=== PATIENT | male | born 1960 | race Caucasian/White ===

== ENCOUNTER 2016-10-20 09:57 | Inpatient (IN) | payer OTHER ==
[~2016-10-20] VITALS: Ht 180.3 cm; Wt 74.8 kg
[2016-10-20] VITALS (9 sets, daily range): BP systolic 105–127; BP diastolic 63–74
--- NOTE | 2016-10-20 10:05 | PHYS DOC ---
Past Medical History Past Medical History: HIV Past Surgical History: Other Additional Past Surgical Histo: STOMACH SX FOR VARICOSE VEINS Alcohol Use: Rarely Adult General Chief Complaint Chief Complaint: abdominal pain HPI HPI Patient is a 56 year old male who presents with abdominal pain. He states it started around 5 AM it is diffuse sharp constant pain this is abdomen. He states he had elbow surgery a few weeks ago is taking hydrocodone and had a hard stool yesterday however he's never had pain or discomfort like this before. He did vomit once this morning with thinks is secondary to sinus drainage. Denies any fevers chills. He states he had a history of varices in his lower abdomen 20 years ago in addition to ulcers. He states he's not had any concerns with both of these over the last 20 years.. He is HIV positive and his states his viral load is undetectable. States nothing he does makes the pain better or worse. He tried to take 2 hydrocodone prior to calling the ambulance this morning without any relief. Review of Systems Review of Systems Constitutional: Denies fever or chills [] Eyes: Denies change in visual acuity, redness, or eye pain [] HENT: Denies nasal congestion or sore throat [] Respiratory: Denies cough or shortness of breath [] Cardiovascular: No additional information not addressed in HPI [] GI: Denies nausea, vomiting, bloody stools or diarrhea, positive for abdominal pain, : Denies dysuria or hematuria [] Musculoskeletal: Denies back pain or joint pain [] Integument: Denies rash or skin lesions [] Neurologic: Denies headache, focal weakness or sensory changes [] Endocrine: Denies polyuria or polydipsia [] Current Medications Current Medications Current Medications Medications (Trade) Dose Ordered Sig/Viet Start Time Stop Time Status Last Admin Dose Admin Hydromorphone HCl (Dilaudid) 1 mg PRN Q15MIN PRN 10/20/16 11:00 10/21/16 10:59 10/20/16 11:24 1 MG Info (Do NOT chart on this entry -- for MONITORING) 1 each PRN DAILY PRN 10/20/16 11:30 10/22/16 11:29 Iohexol (Omnipaque 300 Mg/ml) 75 ml 1X ONCE 10/20/16 11:30 10/20/16 11:31 DC 10/20/16 11:29 75 ML Morphine Sulfate 4 mg PRN Q15MIN PRN 10/20/16 10:15 10/21/16 10:14 10/20/16 10:27 4 MG Ondansetron HCl (Zofran) 4 mg 1X ONCE 10/20/16 10:15 10/20/16 10:16 DC 10/20/16 10:27 4 MG Sodium Chloride 1,000 ml @ 1,000 mls/hr Q1H 10/20/16 10:15 10/20/16 11:14 DC 10/20/16 10:27 1,000 MLS/HR Allergies Allergies Allergies Coded Allergies Type Severity Reaction Last Updated Verified No Known Drug Allergies 11/05/15 No Physical Exam Physical Exam Constitutional: Well developed, well nourished, no acute distress, non-toxic appearance. [] HENT: Normocephalic, atraumatic, bilateral external ears normal, oropharynx moist, no oral exudates, nose normal. [] Eyes: PERRLA, EOMI, conjunctiva normal, no discharge. [] Neck: Normal range of motion, no tenderness, supple, no stridor. [] Cardiovascular:Heart rate regular rhythm, no murmur [] Lungs & Thorax: Bilateral breath sounds clear to auscultation [] Abdomen: Bowel sounds normal, soft, tender to palpation diffusely with voluntary guarding, no masses, no pulsatile masses. [] Skin: Warm, dry, no erythema, no rash. [] Back: No tenderness, no CVA tenderness. [] Extremities: No tenderness, no cyanosis, no clubbing, ROM intact, no edema. [] Neurologic: Alert and oriented X 3, normal motor function, normal sensory function, no focal deficits noted. [] Psychologic: Affect normal, judgement normal, mood normal. [] Current Patient Data Vital Signs Vital Signs Date Time Temp Pulse Resp B/P (MAP) Pulse Ox O2 Delivery O2 Flow Rate FiO2 10/20/16 11:24 26 98 Room Air 10/20/16 11:04 96 128/66 (86) 10/20/16 09:57 96.8 96.8 Lab Values Laboratory Tests Test 10/20/16 10:18 10/20/16 11:40 White Blood Count 17.0 x10^3/uL (4.0-11.0) H Red Blood Count 4.37 x10^6/uL (4.30-5.70) Hemoglobin 15.2 g/dL (13.0-17.5) Hematocrit 43.4 % (39.0-53.0) Mean Corpuscular Volume 99 fL (79-100) Mean Corpuscular Hemoglobin 35 pg (25-35) Mean Corpuscular Hemoglobin Concent 35 g/dL (31-37) Red Cell Distribution Width 12.8 % (11.5-14.5) Platelet Count 275 x10^3/uL (140-400) Neutrophils (%) (Auto) 87 % (31-73) H Lymphocytes (%) (Auto) 6 % (24-48) L Monocytes (%) (Auto) 7 % (0-9) Eosinophils (%) (Auto) 0 % (0-3) Basophils (%) (Auto) 0 % (0-3) Neutrophils # (Auto) 14.7 x10^3uL (1.8-7.7) H Lymphocytes # (Auto) 1.1 x10^3/uL (1.0-4.8) Monocytes # (Auto) 1.2 x10^3/uL (0.0-1.1) H Eosinophils # (Auto) 0.0 x10^3/uL (0.0-0.7) Basophils # (Auto) 0.1 x10^3/uL (0.0-0.2) Segmented Neutrophils % 76 % (35-66) H Band Neutrophils % 6 % (0-9) Lymphocytes % 8 % (24-48) L Monocytes % 10 % (0-10) Hypersegmented Neutrophils Present Platelet Estimate Adequate (ADEQUATE) Prothrombin Time 13.0 SEC (11.7-14.0) Prothrombin Time INR 1.0 (0.8-1.1) PTT 29 SEC (24-38) Sodium Level 139 mmol/L (136-145) Potassium Level 4.2 mmol/L (3.5-5.1) Chloride Level 100 mmol/L (98-107) Carbon Dioxide Level 28 mmol/L (21-32) Anion Gap 11 (6-14) Blood Urea Nitrogen 15 mg/dL (8-26) Creatinine 1.3 mg/dL (0.7-1.3) Estimated GFR (Cockcroft-Gault) 69.1 Glucose Level 146 mg/dL (70-99) H Calcium Level 9.9 mg/dL (8.5-10.1) Total Bilirubin 1.0 mg/dL (0.2-1.0) Direct Bilirubin 0.3 mg/dL (0.0-0.2) H Aspartate Amino Transferase (AST) 18 U/L (15-37) Alanine Aminotransferase (ALT) 24 U/L (16-63) Alkaline Phosphatase 78 U/L (46-116) Creatine Kinase 109 U/L (39-308) Creatine Kinase MB (Mass) 1.5 ng/mL (0.0-3.6) Creatine Kinase MB Relative Index 1.4 % (0-4) Troponin I Quantitative < 0.017 ng/mL (0.000-0.055) Total Protein 7.2 g/dL (6.4-8.2) Albumin 4.3 g/dL (3.4-5.0) Lipase 97 U/L (73-393) Urine Collection Type Void Urine Color Thais Urine Clarity Clear Urine pH 5.5 Urine Specific Pemberton >=1.030 Urine Protein Negative mg/dL (NEG-TRACE) Urine Glucose (UA) Negative mg/dL (NEG) Urine Ketones (Stick) Trace mg/dL (NEG) Urine Blood Negative (NEG) Urine Nitrite Negative (NEG) Urine Bilirubin Small (NEG) Urine Urobilinogen Dipstick 1.0 mg/dL (0.2 mg/dL) Urine Leukocyte Esterase Negative (NEG) Urine RBC Occ /HPF (0-2) Urine WBC Occ /HPF (0-4) Urine Bacteria 0 /HPF (0-FEW) Urine Hyaline Casts Occasional /HPF Urine Mucus Mod /LPF Urine Opiates Screen Pos (NEG) Urine Methadone Screen Neg (NEG) Urine Barbiturates Neg (NEG) Urine Phencyclidine Screen Neg (NEG) Urine Amphetamine/Methamphetamine Neg (NEG) Urine Benzodiazepines Screen Neg (NEG) Urine Cocaine Screen Neg (NEG) Urine Cannabinoids Screen Neg (NEG) Urine Ethyl Alcohol Neg (NEG) Laboratory Tests 10/20/16 10:18 Laboratory Tests 10/20/16 10:18 EKG EKG EKG shows sinus rhythm with rate of [address] elevations or T-wave inversions noted, incomplete right bundle branch morphology noted, QTC 4 and 44 ms, 60 Hz in her Ference noted on the EKG, as interpreted by me. Radiology/Procedures Radiology/Procedures [facility] [address] [place], [place] [id number] IMAGING REPORT Signed PATIENT: COREY ELLIOTT ACCOUNT: [id number] : 1960 LOCATION: ER AGE: 56 SEX: M EXAM STATUS: PRE ER ORD. PHYSICIAN: BULL LYLE MD REASON: abd pain PROCEDURE: PORTABLE CHEST 1V Examination: Single frontal view of the chest. History: History of severe upper abdominal pain Comparison: None available Findings: The cardiomediastinal silhouette grossly appears unremarkable. There is no acute infiltrate or visualized pneumothorax identified. Impression: No acute cardiopulmonary findings. DICTATED and SIGNED BY: DENISHA FORD MD DATE: 10/20/16 1022 CC: BULL LYLE MD; [facility] [address] [place], [place] [id number] IMAGING REPORT Signed PATIENT: COREY ELLIOTT ACCOUNT: [id number] : 1960 LOCATION: ER AGE: 56 SEX: M EXAM STATUS: REG ER ORD. PHYSICIAN: BULL LYLE MD REASON: abd pain PROCEDURE: CT ABD PELV W/ IV CONTRST ONLY Examination: CT of the abdomen pelvis with IV contrast History: History of abdominal pain Comparison: None available Technique: Axial CT images of the abdomen pelvis were performed with IV contrast. Coronal and Sagittal reformats are performed PQRS Compliance Statement: One or more of the following individualized dose reduction techniques were utilized for this examination: 1. Automated exposure control 2. Adjustment of the mA and/or kV according to patient size 3. Use of iterative reconstruction technique Findings: The visualized bibasal lungs grossly appears unremarkable. Moderate amount of free air identified in the abdomen/pneumoperitoneum. The visualized liver grossly appears unremarkable. The stomach is mildly distended. There is mild fat stranding identified about the distal portion of the stomach and the duodenum. There is air tracking from the level of the duodenum into the right upper quadrant. The gallbladder is mildly distended. The small bowel is nondilated. Feces and gas noted throughout the colon. There is a focus of air identified in the right lower quadrant of the abdomen in the region of the pelvis, best visualized on series 2 image #71, uncertain if this is intraluminal or extraluminal. The appendix is not clearly identified. Small amount of free fluid identified in the pelvis and in the abdomen. The urinary bladder is mildly distended. The bilateral kidneys enhance symmetrically. Mild aortic atherosclerosis. No evidence of lytic bony destructive lesion identified. Impression: 1. Moderate Pneumoperitoneum. Uncertain etiology could be perforated viscus such as perforated gastric or duodenal ulcer is a possibility. However other causes of perforated viscus are not excluded. There is a focus of air identified in the right lower quadrant of the abdomen in the region of the pelvis, best visualized on series 2 image #71, uncertain if this is intraluminal or extraluminal. The appendix is not clearly identified. 2. Small amount of free fluid identified in the pelvis and in the abdomen. Report was called to ER physician at time of dictation. DICTATED and SIGNED BY: DENISHA FORD MD DATE: 10/20/16 1146 CC: BULL LYLE MD; [facility] ~ Impressions: Abdominal pain with free air under the diaphragm HIV Course & Med Decision Making Course & Med Decision Making Pertinent Labs and Imaging studies reviewed. (See chart for details) Labs show leukocytosis without any bandemia, he does have free air under the diaphragm on CT scan. Spoke with Dr. Houser with surgery regarding the free air and she is planning on taking him to the OR. Patient's being made nothing by mouth and is in stable condition at this time be admitted to the hospitalist with interim orders. Dragon Disclaimer Dragon Disclaimer This electronic medical record was generated, in whole or in part, using a voice recognition dictation system. Departure Departure Impression: Primary Impression: Abdominal pain Disposition: ADMITTED INPATIENT Admitting Physician: Kymberly Wadsworth Condition: STABLE Referrals: [facility] (PCP) BULL LYLE MD October 20, 2016 10:05
[2016-10-20] MEDS ORDERED: IV NORMAL SALINE 1000ML BAG 1,000 ML IV SCH (10:15)
[2016-10-20] MEDS ORDERED: ONDANSETRON PF 4 MG/2 ML VIAL. IV ONE (10:15)
--- NOTE | 2016-10-20 10:25 | RAD ---
Examination: Single frontal view of the chest. History: History of severe upper abdominal pain Comparison: None available Findings: The cardiomediastinal silhouette grossly appears unremarkable. There is no acute infiltrate or visualized pneumothorax identified. Impression: No acute cardiopulmonary findings.
[2016-10-20] MEDS: MORPHINE SULFATE 4 MG/ML DISP.SYRIN. IV/SQ PRN ×2 (10:27→21:12)
[2016-10-20 10:32] LABS: BASO # 0.1 x10^3/uL (0.0-0.2); BASO % 0 % (0-3); EOS % 0 % (0-3); HEMATOCRIT 43.4 % (39.0-53.0); HEMOGLOBIN 15.2 g/dL (13.0-17.5); LYMPH # 1.1 x10^3/uL (1.0-4.8); LYMPH % 6 % (24-48); MEAN CORPUSCULAR HEMOGLOBIN 35 pg (25-35); MEAN CORPUSCULAR HGB CONC 35 g/dL (31-37); MEAN CORPUSCULAR VOLUME 99 fL (79-100); MONO % 7 % (0-9); NEUT % 87 % (31-73); PLATELET COUNT 275 x10^3/uL (140-400); RED BLOOD COUNT 4.37 x10^6/uL (4.30-5.70); RED CELL DISTRIBUTION WIDTH 12.8 % (11.5-14.5)
[2016-10-20 10:47] LABS: CALCIUM 9.9 mg/dL (8.5-10.1); CREATININE 1.3 mg/dL (0.7-1.3); GFR 69.1; POTASSIUM 4.2 mmol/L (3.5-5.1)
[2016-10-20 10:51] LABS: ALBUMIN 4.3 g/dL (3.4-5.0); DIRECT BILIRUBIN 0.3 mg/dL (0.0-0.2); TOTAL PROTEIN 7.2 g/dL (6.4-8.2)
[2016-10-20 10:54] LABS: PLT ESTIMATE ADEQUATE (ADEQUATE)
[2016-10-20 10:57] LABS: CKMB MASS 1.5 ng/mL (0.0-3.6)
--- NOTE | 2016-10-20 11:11 | EKG ---
[facility] [address] [place] [address] Test Date: 2016-10-20 Test Time: 10:06:30 Pat Name: COREY ELLIOTT Department: Room: Gender: M Informatics Nurse: : 1960 Requested By: BULL LYLE Order Number: [id number] Reading MD: Will Parks Measurements Intervals Otho Rate: 99 P: 55 MA: 140 QRS: 42 QRSD: 102 T: 65 QT: 342 QTc: 444 Interpretive Statements SINUS RHYTHM Electronically Signed On 10-26-2016 13:29:40 CDT by Will Parks
[2016-10-20] MEDS: HYDROmorphone 2 MG/ML VIAL IV/SQ PRN (11:24)
[2016-10-20] MEDS ORDERED: IOHEXOL 300 MG/ML 75 ML VIAL IV ONE (11:30)
[2016-10-20] MEDS ORDERED: CONTRAST GIVEN MC PRN (11:30)
[2016-10-20 11:53] LABS: BARBITURATES NEG (NEG); BENZODIAZEPINES NEG (NEG); CANNABINOIDS NEG (NEG); COCAINE NEG (NEG); METHADONE NEG (NEG); OPIATES POS (NEG); PHENCYCLIDINE NEG (NEG)
[2016-10-20 11:56] LABS: BILIRUBIN,URINE SMALL (NEG); GLUCOSE,URINE NEGATIVE (NEG); NITRITE,URINE NEGATIVE (NEG); PH,URINE 5.5; PROTEIN,URINE NEGATIVE (NEG-TRACE)
--- NOTE | 2016-10-20 12:02 | RAD ---
Examination: CT of the abdomen pelvis with IV contrast History: History of abdominal pain Comparison: None available Technique: Axial CT images of the abdomen pelvis were performed with IV contrast. Coronal and Sagittal reformats are performed RS Compliance Statement: One or more of the following individualized dose reduction techniques were utilized for this examination: 1. Automated exposure control 2. Adjustment of the mA and/or kV according to patient size 3. Use of iterative reconstruction technique Findings: The visualized bibasal lungs grossly appears unremarkable. Moderate amount of free air identified in the abdomen/pneumoperitoneum. The visualized liver grossly appears unremarkable. The stomach is mildly distended. There is mild fat stranding identified about the distal portion of the stomach and the duodenum. There is air tracking from the level of the duodenum into the right upper quadrant. The gallbladder is mildly distended. The small bowel is nondilated. Feces and gas noted throughout the colon. There is a focus of air identified in the right lower quadrant of the abdomen in the region of the pelvis, best visualized on series 2 image #71, uncertain if this is intraluminal or extraluminal. The appendix is not clearly identified. Small amount of free fluid identified in the pelvis and in the abdomen. The urinary bladder is mildly distended. The bilateral kidneys enhance symmetrically. Mild aortic atherosclerosis. No evidence of lytic bony destructive lesion identified. Impression: 1. Moderate Pneumoperitoneum. Uncertain etiology could be perforated viscus such as perforated gastric or duodenal ulcer is a possibility. However other causes of perforated viscus are not excluded. There is a focus of air identified in the right lower quadrant of the abdomen in the region of the pelvis, best visualized on series 2 image #71, uncertain if this is intraluminal or extraluminal. The appendix is not clearly identified. 2. Small amount of free fluid identified in the pelvis and in the abdomen. Report was called to ER physician at time of dictation.
[2016-10-20 12:05] LABS: BACTERIA,URINE 0 /HPF (0-FEW); RBC,URINE OCC /HPF (0-2); WBC,URINE OCC /HPF (0-4)
[2016-10-20] MEDS ORDERED: PROPOFOL 20 ML IV ONE (12:24)
[2016-10-20] MEDS ORDERED: ROCURONIUM 50 MG/5 ML VIAL. ONE (12:24)
[2016-10-20] MEDS ORDERED: LIDOCAINE 2% PF Vial for OR 5 ML VIAL. ONE (12:24)
[2016-10-20] MEDS ORDERED: fentaNYL PF VIAL 100 MCG/2 ML VIAL ONE ×2 (12:24→14:27)
[2016-10-20] MEDS ORDERED: DEXAMETHASONE SOD PHOS 20 MG/5 ML VIAL. ONE (12:24)
[2016-10-20] MEDS ORDERED: MIDAZOLAM HCL/PF 2 MG/2 ML VIAL. ONE (12:24)
[2016-10-20] MEDS ORDERED: ONDANSETRON PF 4 MG/2 ML VIAL. ONE (12:24)
--- NOTE | 2016-10-20 12:39 | ACF ---
Admission Forms Criteria ABDOMINAL PAIN Clinical Indications for Admission to Inpatient Care (Place 'X' for any and all applicable criteria): Admission is indicated for ANY ONE of the following(1)(2)(3)(4)(5): [X]I. Inpatient admission required rather than observation care (Also use Abdominal Pain: Observation Care, as appropriate) because of ANY ONE of the following: [X]a) Severe pain requiring acute inpatient management [X]b) Identification of etiology/finding that requires inpatient care (eg, aortic dissection, free air) [ ]c) Absent bowel sounds with complete ileus(6) [ ]d) Suspected toxic megacolon [ ]e) Severe electrolyte abnormalities requiring inpatient care [ ]f) High fever or infection requiring inpatient admission as indicated by ANY ONE of following(7)(8): [ ] i) Appropriate outpatient or observational care antimicrobial treatment unavailable, not effective, or not feasible [ ] ii) Documented bacteremia [ ] iii) Temperature > 104.9 degrees F (oral) [ ] iv) T >103.1 F (oral) or < 96.8 F(rectal) that does not respond to all emergency treatment measures [ ]g) Signs of intestinal obstruction [B] [ ]h) Hemodynamic instability [ ]i) IV fluid to replace significant ongoing losses (greater than 3 L/m2 per day) (12)(13) [ ]j) Percutaneous or open drainage (eg, abscess, biliary tract ) procedures [ ]k) Parenteral nutrition regimen that must be implemented on inpatient basis [ ]l) Other condition,treatment or monitoring requiring inpatient admission. [ ]II. Peritoneal signs present [ ]III. Surgery needed that cannot be performed on an ambulatory basis. [X]IV. Evaluation requires patient to not eat or drink for extended period ( eg, more than 24 hours). [ ]V. Contraindications and/or Inappropriate clinical situations for Observational Care in patients with abdominal pain, when ANY ONE of the following is required: [ ]a) Thorough evaluation is required to prevent catastrophic events due to delays in diagnosing (e.g.Mesenteric ischemia) 1,3 [ ]b) Patient with severe pathology or with chronic symptoms unlikely to improve in the ED stay (3) [ ]. General contraindications and/or Inappropriate clinical situations for Observational Care in patients with abdominal pain, when ANY ONE of the following is required: [ ]a) Prediction of prolongation of LOS based on ANY ONE of the following may be considered as a contraindication for observational care 2, 3, 4, 5, 6, 7, 8, 9, 10, 11 [ ]i) Age > 65 yrs. [ ]ii) Patient arriving by ambulance [ ]iii) Patient with high acuity [ ]iv) Patient requiring vital sign monitoring [ ]v) Patient on IV medication [ ]b) Systolic blood pressures 180mmHg 3,12 [ ]c) Patient with altered mental status including delirium and other alteration of consciousness, (3) [ ]d) Patient whose discharge disposition will be to a intermediate home or rehabilitation home should not be managed in Emergency Department Observation Unit. CMS rule requires 3 days hospital stay before such placement.3,13 [ ]e) Patient with failure to thrive due to broad array of etiologies 3,16,17 [ ]f) Inability to ambulate 3,14 Extended stay beyond goal length of stay may be needed for(2)(3): [ ]a) Persistent abdominal pain with suspected intra-abdominal process [ ]b) Diagnosed condition requiring continued stay (e.g., pancreatitis, complicated diverticulitis) [ ]c) Surgery (e.g., colectomy) The original [facility] content created by [employer] has been revised. The portions of the content which have been revised are identified through the use of italic text or in bold, and [facility] has neither reviewed nor approved the modified material.All other unmodified content is copyright [employer]. Please see references footnoted in the original [facility] edition 2016 Admission Criteria Met?: Yes VILMA KUO October 20, 2016 12:39
[2016-10-20] MEDS ORDERED: ONDANSETRON PF 4 MG/2 ML VIAL. IV PRN ×2 (12:45→13:00)
[2016-10-20] MEDS ORDERED: MORPHINE SULFATE 2 MG/ML DISP.SYRIN. IV PRN ×2 (12:45→13:00)
[2016-10-20] MEDS ORDERED: BUPIVAC MPF-EPI 0.5%-1:200000 30 ML VIAL. ONE (12:48)
[2016-10-20] MEDS ORDERED: PROCHLORPERAZINE 10 MG/2 ML VIAL. IV PRN (13:00)
[2016-10-20] MEDS ORDERED: HYDROmorphone 2 MG/ML VIAL IV PRN (13:00)
[2016-10-20] MEDS ORDERED: LIDOCAINE 1% 1 ML SYRINGE. ID PRN (13:00)
[2016-10-20] MEDS ORDERED: fentaNYL PF VIAL 100 MCG/2 ML VIAL IV PRN ×2 (13:00)
[2016-10-20] MEDS ORDERED: SUCCINYLCHOLINE 200 MG/10 ML VIAL. ONE (13:05)
[2016-10-20] MEDS: IV RINGERS,LACTATED 1000ML 1,000 ML IV SCH ×2 (13:25→15:50)
--- NOTE | 2016-10-20 13:44 | PDOC ---
Provider Note Provider Note #[id number] consult dictated To OR emergently for exploration. r/b d/w him. RACHAEL MARTINEZ MD October 20, 2016 13:44
[2016-10-20] MEDS ORDERED: GLYCOPYRROLATE 1 MG/5 ML VIAL. ONE (14:16)
[2016-10-20] MEDS ORDERED: NEOSTIGMINE METHYLSULFATE 5 MG/5 ML SYRINGE. ONE (14:50)
[2016-10-20] MEDS ORDERED: SEVOFLURANE 61 TO 120 MINUTES. IH ONE (15:20)
[2016-10-20] MEDS ORDERED: HYDROmorphone 2 MG/ML VIAL IVP PRN (15:45)
--- NOTE | 2016-10-20 15:47 | PDOC ---
BRIEF OPERATIVE NOTE Pre-Op Diagnosis peritonitis Post-Op Diagnosis perf prepyloric ulcer Procedure Performed lap repair perf ulcer Surgeon k quincy Anesthesia Type: General Blood Loss 25 IV Fluid 2000 Complications 0 RACHAEL MARTINEZ MD October 20, 2016 15:47
[2016-10-20] MEDS ORDERED: PHENYLEPHRINE in 0.9% NACL PF 1 MG/10 ML DISP.SYRIN. IV ONE (15:58)
[2016-10-20] MEDS ORDERED: ESMOLOL 100 MG/10 ML VIAL. IV ONE (15:58)
--- NOTE | 2016-10-20 17:11 | PDOC1 ---
History and Physical Date of Admission Date of Admission DATE: 10/20/16 TIME: 17:03 Identification/Chief Complaint Chief Complaint abd pain Problems: Source Source: Caregiver, Chart review, Patient History of Present Illness History of Present Illness 56 y.o male, HIV since 2009, on HAART, acute onset abd pain, maybe emesis? on day of admit, Rest of hx limited,pt just got back post stat OR - laparoscopic for pneumoperitoneum seen on CT, Stat OR done, discovered perf ulcer (gastric? vs duodenum) - no report yet from surgeon, Currently has NGT, in discmfort from it. BUt VS ok and in no distress. LAst viral load undetectable , CD 4 ct unknown (was supposed to get labs today as oP). COncerned about not getting his HAARt, counselled. Pt admits to use of OTC nsaids intermittently for the past 6 mos for carpal tunnel in hands, and points to his elbows (bursitis? denies OA or gout). SMoker , maybe a pack a day, non drinker. Past Medical History Cardiovascular: Hyperlipidemia Infectious disease: Other (HIV) Past Surgical History Past Surgical History: Other (lap ex lap today) Family History Family History: No Significant Social History Smoke: 1 pack per day ALCOHOL: none Drugs: None Current Medications Current Medications Current Medications Morphine Sulfate 4 mg PRN Q15MIN PRN IV/SQ PAIN GREATER THAN 3/10 Last administered on 10/20/16 10:27; Start 10/20/16 at 10:15; Stop 10/21/16 at 10:14 Sodium Chloride 1,000 ml @ 1,000 mls/hr Q1H IV Last administered on 10/20/16 10:27; Start 10/20/16 at 10:15; Stop 10/20/16 at 11:14; Status DC Ondansetron HCl (Zofran) 4 mg 1X ONCE IV Last administered on 10/20/16 10:27 ; Start 10/20/16 at 10:15; Stop 10/20/16 at 10:16; Status DC Hydromorphone HCl (Dilaudid) 1 mg PRN Q15MIN PRN IV/SQ PAIN GREATER THAN 3/10 Last administered on 10/20/16 11:24; Start 10/20/16 at 11:00; Stop 10/21/16 at 10:59 Iohexol (Omnipaque 300 Mg/ml) 75 ml 1X ONCE IV Last administered on 10/20/16t 11:29; Start 10/20/16 at 11:30; Stop 10/20/16 at 11:31; Status DC Info (Do NOT chart on this entry -- for MONITORING) 1 each PRN DAILY PRN MC SEE COMMENTS; Start 10/20/16 at 11:30; Stop 10/22/16 at 11:29 Dexamethasone Sodium Phosphate (Decadron) 20 mg STK-MED ONCE .ROUTE ; Start at 12:24; Stop 10/20/16 at 12:25; Status DC Ondansetron HCl (Zofran) 4 mg STK-MED ONCE .ROUTE ; Start 10/20/16 at 12:24; Stop 10/20/16 at 12:25; Status DC Propofol 20 ml @ As Directed STK-MED ONCE IV ; Start 10/20/16 at 12:24; Stop at 12:25; Status DC Lidocaine HCl (Lidocaine Pf 2% Vial) 5 ml STK-MED ONCE .ROUTE ; Start 10/20/16 at 12:24; Stop 10/20/16 at 12:25; Status DC Midazolam HCl (Versed) 2 mg STK-MED ONCE .ROUTE ; Start 10/20/16 at 12:24; Stop 10/20/16 at 12:25; Status DC Rocuronium [place] (Zemuron) 50 mg STK-MED ONCE .ROUTE ; Start 10/20/16 at 12:24 ; Stop 10/20/16 at 12:25; Status DC Fentanyl Citrate (Fentanyl 2ml Vial) 100 mcg STK-MED ONCE .ROUTE ; Start at 12:24; Stop 10/20/16 at 12:25; Status DC Ondansetron HCl (Zofran) 4 mg PRN Q8HRS PRN IV NAUSEA/VOMITING; Start 10/20/16 at 12:45; Stop 10/21/16 at 12:44 Morphine Sulfate 2 mg PRN Q2HR PRN IV PAIN; Start 10/20/16 at 12:45; Stop 10/21 at 12:44 Ondansetron HCl (Zofran) 4 mg PRN Q6HRS PRN IV NAUSEA/VOMITING; Start 10/20/16 at 13:00; Stop 10/21/16 at 12:59 Fentanyl Citrate (Fentanyl 2ml Vial) 25 mcg PRN Q5MIN PRN IV MILD PAIN; Start 10/20/16 at 13:00; Stop 10/21/16 at 12:59 Fentanyl Citrate (Fentanyl 2ml Vial) 50 mcg PRN Q5MIN PRN IV MODERATE PAIN; Start 10/20/16 at 13:00; Stop 10/21/16 at 12:59 Morphine Sulfate 1 mg PRN Q10MIN PRN IV SEVERE PAIN; Start 10/20/16 at 13:00; Stop 10/21/16 at 12:59 Ringer's Solution 1,000 ml @ 30 mls/hr Q24H IV Last administered on 10/20/16t 15:50; Start 10/20/16 at 12:48; Stop 10/21/16 at 00:47 Lidocaine HCl 2 ml PRN 1X PRN ID PRIOR TO IV START; Start 10/20/16 at 13:00; Stop 10/21/16 at 12:59 Hydromorphone HCl (Dilaudid) 0.5 mg PRN Q10MIN PRN IV SEV PAIN, Second choice; Start 10/20/16 at 13:00; Stop 10/21/16 at 12:59 Prochlorperazine Edisylate (Compazine) 5 mg PACU PRN PRN IV NAUSEA, MRX1; Start 10/20/16 at 13:00; Stop 10/21/16 at 12:59 Bupivacaine HCl/ Epinephrine Bitart (Sensorcain-Mpf Epi 0.5%-1:[id number]) 30 ml STK -MED ONCE .ROUTE Last administered on 10/20/16 14:11; Start 10/20/16 at 12:48 ; Stop 10/20/16 at 12:49; Status DC Succinylcholine Chloride (Anectine) 200 mg STK-MED ONCE .ROUTE ; Start 10/20/16 at 13:05; Stop 10/20/16 at 13:06; Status DC Cefoxitin Sodium 100 ml @ As Directed STK-MED ONCE IV ; Start 10/20/16 at 13:33 ; Stop 10/20/16 at 13:34; Status DC Cefoxitin Sodium 2 gm/Sodium Chloride 100 ml @ 200 mls/hr 1X ONCE IV ; Start 10/20/16 at 13:45; Stop 10/20/16 at 14:14; Status UNV Cefoxitin Sodium 100 ml @ 200 mls/hr ONCE ONCE IV Last administered on t 13:47; Start 10/20/16 at 14:00; Stop 10/20/16 at 14:29; Status DC Glycopyrrolate (Robinul) 1 mg STK-MED ONCE .ROUTE ; Start 10/20/16 at 14:16; Stop 10/20/16 at 14:17; Status DC Fentanyl Citrate (Fentanyl 2ml Vial) 100 mcg STK-MED ONCE .ROUTE ; Start at 14:27; Stop 10/20/16 at 14:28; Status DC Neostigmine Methylsulfate 5 mg STK-MED ONCE .ROUTE ; Start 10/20/16 at 14:50; Stop 10/20/16 at 14:51; Status DC Sevoflurane (Ultane) 60 ml STK-MED ONCE IH ; Start 10/20/16 at 15:20; Stop 10/20 at 15:21; Status DC Sodium Chloride 1,000 ml @ 100 mls/hr Q10H IV ; Start 10/20/16 at 15:45 Piperacillin Sod/ Tazobactam Sod 3.375 gm/Sodium Chloride 50 ml @ 100 mls/hr Q6HRS IV ; Start 10/20/16 at 18:00 Pantoprazole Sodium (Protonix Vial) 40 mg BID IVP ; Start 10/20/16 at 15:45 Hydromorphone HCl (Dilaudid) 0.4 mg PRN Q4HRS PRN IVP PAIN; Start 10/20/16 at 15:45 Tramadol HCl (Ultram) 50 mg PRN Q6HRS PRN PO PAIN; Start 10/20/16 at 15:45 Oxycodone/ Acetaminophen (Percocet 5/325) 2 tab PRN Q4HRS PRN PO PAIN; Start at 15:45 Phenylephrine HCl 1 mg STK-MED ONCE IV ; Start 10/20/16 at 15:58; Stop 10/20/16 at 15:59; Status DC Esmolol HCl (Brevibloc) 100 mg STK-MED ONCE IV ; Start 10/20/16 at 15:58; Stop 10/20/16 at 15:59; Status DC Allergies Allergies: Coded Allergies: No Known Drug Allergies (Unverified , 11/05/15) ROS General: No: Chills, Night Sweats, Fatigue, Malaise, Appetite, Other PSYCHOLOGICAL ROS: No: Anxiety, Behavioral Disorder, Concentration difficultie , Decreased libido, Depression, Disorientation, Hallucinations, Hostility, Irritablity, Memory difficulties, Mood Swings, Obsessive thoughts, Physical abuse, Sexual abuse, Sleep disturbances, Suicidal ideation, Other Eyes: No Blurry vision, No Decreased vision, No Double vision, No Dry eyes, No Excessive tearing, No Eye Pain, No Itchy Eyes, No Loss of vision, No Photophobia , No Scotomata, No Uses contacts, No Uses glasses, No Other HEENT: No: Heacaches, Visual Changes, Hearing change, Nasal congestion, Nasal discharge, Oral lesions, Sinus pain, Sore Throat, Epistaxis, Sneezing, Snoring, Tinnitus, Vertigo, Vocal changes, Other ALLERGY AND IMMUNOLOGY: No: Hives, Insect Bite Sensitivity, Itchy/Watery Eyes, Nasal Congestion, Post Nasal Drip, Seasonal Allergies, Other Hematological and Lymphatic: No: Bleeding Problems, Blood Clots, Blood Transfusions, Brusing, Night Sweats, Pallor, Swollen Lymph Nodes, Other ENDOCRINE: No: Breast Changes, Galactorrhea, Hair Pattern Changes, Hot Flashes , Malaise/lethargy, Mood Swings, Palpitations, Polydipsia/polyuria, Skin Changes , Temperature Intolerance, Unexpected Weight Changes, Other Breast: No New/Changing Breast Lumps, No Nipple changes, No Nipple discharge, No Other Respiratory: No: Cough, Hemoptysis, Orthopnea, Pleuritic Pain, Shortness of breath, SOB with excertion, Sputum Changes, Stridor, Tachypnea, Wheezing, Other Cardiovascular: No Chest Pain, No Palpitations, No Orthopnea, No Paroxysmal Noc. Dyspnea, No Edema, No Lt Headedness, No Other Gastrointestinal: Yes Abdominal Pain Genitourinary: No Dysuria, No Frequency, No Incontinence, No Hematuria, No Retention, No Discharge, No Urgency, No Pain, No Flank Pain, No Other, No , No , No , No , No , No , No Musculoskeletal: No Gait Disturbance, No Joint Pain, No Joint Stiffness, No Joint Swelling, No Muscle Pain, No Muscular Weakness, No Pain In:, No Swelling In:, No Other Neurological: No Behavorial Changes, No Bowel/Bladder ControlChng, No Confusion , No Dizziness, No Gait Disturbance, No Headaches, No Impaired Coord/balance, No Memory Loss, No Numbness/Tingling, No Seizures, No Speech Problems, No Tremors, No Visual Changes, No Weakness, No Other Skin: No Dry Skin, No Eczema, No Hair Changes, No Lumps, No Mole Changes, No Mottling, No Nail Changes, No Pruritus, No Rash, No Skin Lesion Changes, No Other, No Acne Physical Exam General: Alert, Oriented X3, Cooperative, No acute distress, Other (in discomfort from NGT) HEENT: Atraumatic, PERRLA Lungs: Clear to auscultation, Normal air movement Heart: S1S2, no gallops Cardiovascular: S1, S2 Breasts: Normal, Abnormal mass palpable Abdomen: Other (3 lap wounds, loooking good, hypoactive BS< tympanitic, tender to mod palp) Extremities: No clubbing, No cyanosis, No edema, Normal pulses, No tenderness/ swelling Skin: No rashes, No breakdown, No significant lesion Neuro: Normal gait, Normal speech, Strength at 5/5 X4 ext, Normal tone, Sensation intact, Cranial nerves 3-12 NL, Reflexes 2+ Psych/Mental Status: Mental status NL, Mood NL Vitals Vitals Vital Signs Date Time Temp Pulse Resp B/P (MAP) Pulse Ox O2 Delivery O2 Flow Rate FiO2 10/20/16 16:25 98.2 78 20 115/65 99 Nasal Cannula 2 98.2 Labs Labs Laboratory Tests Test 10/20/16 10:18 10/20/16 11:40 White Blood Count 17.0 x10^3/uL (4.0-11.0) Red Blood Count 4.37 x10^6/uL (4.30-5.70) Hemoglobin 15.2 g/dL (13.0-17.5) Hematocrit 43.4 % (39.0-53.0) Mean Corpuscular Volume 99 fL (79-100) Mean Corpuscular Hemoglobin 35 pg (25-35) Mean Corpuscular Hemoglobin Concent 35 g/dL (31-37) Red Cell Distribution Width 12.8 % (11.5-14.5) Platelet Count 275 x10^3/uL (140-400) Neutrophils (%) (Auto) 87 % (31-73) Lymphocytes (%) (Auto) 6 % (24-48) Monocytes (%) (Auto) 7 % (0-9) Eosinophils (%) (Auto) 0 % (0-3) Basophils (%) (Auto) 0 % (0-3) Neutrophils # (Auto) 14.7 x10^3uL (1.8-7.7) Lymphocytes # (Auto) 1.1 x10^3/uL (1.0-4.8) Monocytes # (Auto) 1.2 x10^3/uL (0.0-1.1) Eosinophils # (Auto) 0.0 x10^3/uL (0.0-0.7) Basophils # (Auto) 0.1 x10^3/uL (0.0-0.2) Segmented Neutrophils % 76 % (35-66) Band Neutrophils % 6 % (0-9) Lymphocytes % 8 % (24-48) Monocytes % 10 % (0-10) Hypersegmented Neutrophils Present Platelet Estimate Adequate (ADEQUATE) Prothrombin Time 13.0 SEC (11.7-14.0) Prothromb Time International Ratio 1.0 (0.8-1.1) Activated Partial Thromboplast Time 29 SEC (24-38) Sodium Level 139 mmol/L (136-145) Potassium Level 4.2 mmol/L (3.5-5.1) Chloride Level 100 mmol/L (98-107) Carbon Dioxide Level 28 mmol/L (21-32) Anion Gap 11 (6-14) Blood Urea Nitrogen 15 mg/dL (8-26) Creatinine 1.3 mg/dL (0.7-1.3) Estimated GFR (Cockcroft-Gault) 69.1 Glucose Level 146 mg/dL (70-99) Calcium Level 9.9 mg/dL (8.5-10.1) Total Bilirubin 1.0 mg/dL (0.2-1.0) Direct Bilirubin 0.3 mg/dL (0.0-0.2) Aspartate Amino Transf (AST/SGOT) 18 U/L (15-37) Alanine Aminotransferase (ALT/SGPT) 24 U/L (16-63) Alkaline Phosphatase 78 U/L (46-116) Creatine Kinase 109 U/L (39-308) Creatine Kinase MB (Mass) 1.5 ng/mL (0.0-3.6) Creatine Kinase MB Relative Index 1.4 % (0-4) Troponin I Quantitative < 0.017 ng/mL (0.000-0.055) Total Protein 7.2 g/dL (6.4-8.2) Albumin 4.3 g/dL (3.4-5.0) Lipase 97 U/L (73-393) Urine Collection Type Void Urine Color [place] Urine Clarity Clear Urine pH 5.5 Urine Specific [place] >=1.030 Urine Protein Negative mg/dL (NEG-TRACE) Urine Glucose (UA) Negative mg/dL (NEG) Urine Ketones (Stick) Trace mg/dL (NEG) Urine Blood Negative (NEG) Urine Nitrite Negative (NEG) Urine Bilirubin Small (NEG) Urine Urobilinogen Dipstick 1.0 mg/dL (0.2 mg/dL) Urine Leukocyte Esterase Negative (NEG) Urine RBC Occ /HPF (0-2) Urine WBC Occ /HPF (0-4) Urine Bacteria 0 /HPF (0-FEW) Urine Hyaline Casts Occasional /HPF Urine Mucus Mod /LPF Urine Opiates Screen Pos (NEG) Urine Methadone Screen Neg (NEG) Urine Barbiturates Neg (NEG) Urine Phencyclidine Screen Neg (NEG) Urine Amphetamine/Methamphetamine Neg (NEG) Urine Benzodiazepines Screen Neg (NEG) Urine Cocaine Screen Neg (NEG) Urine Cannabinoids Screen Neg (NEG) Urine Ethyl Alcohol Neg (NEG) Laboratory Tests Test 10/20/16 10:18 10/20/16 11:40 White Blood Count 17.0 x10^3/uL (4.0-11.0) Red Blood Count 4.37 x10^6/uL (4.30-5.70) Hemoglobin 15.2 g/dL (13.0-17.5) Hematocrit 43.4 % (39.0-53.0) Mean Corpuscular Volume 99 fL (79-100) Mean Corpuscular Hemoglobin 35 pg (25-35) Mean Corpuscular Hemoglobin Concent 35 g/dL (31-37) Red Cell Distribution Width 12.8 % (11.5-14.5) Platelet Count 275 x10^3/uL (140-400) Neutrophils (%) (Auto) 87 % (31-73) Lymphocytes (%) (Auto) 6 % (24-48) Monocytes (%) (Auto) 7 % (0-9) Eosinophils (%) (Auto) 0 % (0-3) Basophils (%) (Auto) 0 % (0-3) Neutrophils # (Auto) 14.7 x10^3uL (1.8-7.7) Lymphocytes # (Auto) 1.1 x10^3/uL (1.0-4.8) Monocytes # (Auto) 1.2 x10^3/uL (0.0-1.1) Eosinophils # (Auto) 0.0 x10^3/uL (0.0-0.7) Basophils # (Auto) 0.1 x10^3/uL (0.0-0.2) Segmented Neutrophils % 76 % (35-66) Band Neutrophils % 6 % (0-9) Lymphocytes % 8 % (24-48) Monocytes % 10 % (0-10) Hypersegmented Neutrophils Present Platelet Estimate Adequate (ADEQUATE) Prothrombin Time 13.0 SEC (11.7-14.0) Prothromb Time International Ratio 1.0 (0.8-1.1) Activated Partial Thromboplast Time 29 SEC (24-38) Sodium Level 139 mmol/L (136-145) Potassium Level 4.2 mmol/L (3.5-5.1) Chloride Level 100 mmol/L (98-107) Carbon Dioxide Level 28 mmol/L (21-32) Anion Gap 11 (6-14) Blood Urea Nitrogen 15 mg/dL (8-26) Creatinine 1.3 mg/dL (0.7-1.3) Estimated GFR (Cockcroft-Gault) 69.1 Glucose Level 146 mg/dL (70-99) Calcium Level 9.9 mg/dL (8.5-10.1) Total Bilirubin 1.0 mg/dL (0.2-1.0) Direct Bilirubin 0.3 mg/dL (0.0-0.2) Aspartate Amino Transf (AST/SGOT) 18 U/L (15-37) Alanine Aminotransferase (ALT/SGPT) 24 U/L (16-63) Alkaline Phosphatase 78 U/L (46-116) Creatine Kinase 109 U/L (39-308) Creatine Kinase MB (Mass) 1.5 ng/mL (0.0-3.6) Creatine Kinase MB Relative Index 1.4 % (0-4) Troponin I Quantitative < 0.017 ng/mL (0.000-0.055) Total Protein 7.2 g/dL (6.4-8.2) Albumin 4.3 g/dL (3.4-5.0) Lipase 97 U/L (73-393) Urine Collection Type Void Urine Color [place] Urine Clarity Clear Urine pH 5.5 Urine Specific [place] >=1.030 Urine Protein Negative mg/dL (NEG-TRACE) Urine Glucose (UA) Negative mg/dL (NEG) Urine Ketones (Stick) Trace mg/dL (NEG) Urine Blood Negative (NEG) Urine Nitrite Negative (NEG) Urine Bilirubin Small (NEG) Urine Urobilinogen Dipstick 1.0 mg/dL (0.2 mg/dL) Urine Leukocyte Esterase Negative (NEG) Urine RBC Occ /HPF (0-2) Urine WBC Occ /HPF (0-4) Urine Bacteria 0 /HPF (0-FEW) Urine Hyaline Casts Occasional /HPF Urine Mucus Mod /LPF Urine Opiates Screen Pos (NEG) Urine Methadone Screen Neg (NEG) Urine Barbiturates Neg (NEG) Urine Phencyclidine Screen Neg (NEG) Urine Amphetamine/Methamphetamine Neg (NEG) Urine Benzodiazepines Screen Neg (NEG) Urine Cocaine Screen Neg (NEG) Urine Cannabinoids Screen Neg (NEG) Urine Ethyl Alcohol Neg (NEG) VTE Prophylaxis Ordered VTE Prophylaxis Devices: Yes VTE Pharmacological Prophylaxi: Yes Assessment/Plan Assessment/Plan 1. Perf Ulcer (gastric? ) s/p stat laparoscopic Ex lap (10/1916) 2. NSAid use hx for carpal tunnel and bursitis 3. HIV on HAART, undetectable viral load 4. SIRS POA, no sepsis 5. reactive leukocytosis PLAn: 2MN admit Strict NPO,. NGT IVF pain meds Gi consulted Might need EGD Can check CD4 ct - pt requests this Dw pt and RN at bedside MARGO ALTAMIRANO MD October 20, 2016 17:11
--- NOTE | 2016-10-20 17:29 | RAD ---
PROCEDURE Single-view abdomen dated 10/20/2016. HISTORY NG placement. TECHNIQUE Single-view abdomen performed. COMPARISON None. FINDINGS NG tube with tip projected to the left upper quadrant, likely within the gastric fundus. Bowel gas pattern nonobstructive. IMPRESSION NG tube tip projected to the level the gastric fundus. Electronically signed by: Moncho Varghese (October 20, 2016 17:28:33)
[2016-10-20] MEDS: IV NORMAL SALINE 1000ML BAG 1,000 ML IV SCH (17:56)
[2016-10-20] MEDS: PIPERACILLIN/TAZOBACTAM 3.375 GM in IV NORMAL SALINE 50ML 50 ML IV SCH (17:56)
[2016-10-20] MEDS: PANTOPRAZOLE IV PUSH 40 MG VIAL. IVP SCH ×2 (17:56→21:12)
[2016-10-20] MEDS ORDERED: ATOR10TA60 PO (18:20)
[2016-10-20] MEDS ORDERED: EFAV1TAB PO (18:20)
[2016-10-20] MEDS ORDERED: PHENOL ORAL SPRAY 177ML BOTTLE. PO PRN (21:45)
--- NOTE | 2016-10-20 22:22 | OP ---
DATE OF SURGERY: 10/20/2016 PREOPERATIVE DIAGNOSIS: Peritonitis. POSTOPERATIVE DIAGNOSIS: Perforated prepyloric ulcer. PROCEDURE: Laparoscopic repair of perforated gastric ulcer. SURGEON: Rachael Martinez M.D. ANESTHESIA: General. ESTIMATED BLOOD LOSS: 25 mL. INTRAVENOUS FLUIDS: 2000 mL. INDICATIONS: The patient is a 56-year-old male who presents with acute onset of abdominal pain as well as increased nausea and vomiting recently. CT scan showed free intraperitoneal air without an identifiable source. FINDINGS: He had approximately 3-4 mm opening in the prepyloric region anteriorly. This was oversewn with 2-0 silk sutures x 3 and then buttressed with an omental patch. PROCEDURE IN DETAIL: After informed consent was obtained, the patient was taken to the operating room and placed in supine position. After adequate induction of general anesthesia, he was prepped and draped in the usual sterile fashion. He had been placed in modified lithotomy position. After prepping and draping, an umbilical skin incision was made with a scalpel, subcutaneous tissues spread with a hemostat. [facility] was used to grab the fascia and lift it anteriorly. Veress was used to gain access to the peritoneal cavity. Low opening pressures confirmed intraperitoneal placement of Veress. Pneumoperitoneum to 15 mmHg was established followed by placement of 5 mm port. A 5 mm 30 degree lens was inserted, which revealed good port placement. No evidence of entry trauma. He was placed head up and then 3 additional ports were placed, one was an 11 mm left upper quadrant port and the other was a 5 mm left upper quadrant port and the final port was a 5 mm right upper quadrant port. He had a significant amount of bilious material in the upper abdomen primarily with evidence of peritonitis around the liver, gallbladder and stomach, all consistent with perforated gastric or duodenal ulcer. At this point, the liver was overlying the distal portion of the stomach in the prepyloric area. The liver was elevated with a grasper to reveal a 3-4 mm hole in the prepyloric region of the stomach anteriorly. Liver retractor was used to provide exposure and the hole was closed with EndoStitch using 2-0 silk sutures x 3. The omentum was then buttressed against the stomach with 3-0 silk sutures x 3. The entire peritoneal cavity was irrigated until the irrigant returned clear. His position was changed intraoperatively from that of a head up to that of a head down position to help facilitate washout of the abdomen. At this point, the operative site was inspected and was hemostatic. The perforation had been closed and the repair had been buttressed with omentum. Fascial closure device was used to close the fascia at the left upper quadrant incision using 0 Vicryl suture. Ports removed under direct vision. They were hemostatic. Pneumoperitoneum was desufflated. Skin incisions were closed with 4-0 Monocryl in subcuticular fashion. Sterile dressings were placed. He tolerated the procedure well. There were no apparent complications and then he was transferred in stable condition to the recovery room. RACHEAL MARTINEZ MD DR: ZION/iván JOB#: [id number] / [id number] Mello IRA MD THOMPSON, MICHAEL MD MTDD
[2016-10-21] MEDS: PIPERACILLIN/TAZOBACTAM 3.375 GM in IV NORMAL SALINE 50ML 50 ML IV SCH ×4 (00:38→18:26)
[2016-10-21] MEDS: MORPHINE SULFATE 4 MG/ML DISP.SYRIN. IV/SQ PRN ×3 (00:39→05:30)
--- NOTE | 2016-10-21 01:19 | CONS ---
DATE OF CONSULTATION: 10/20/2016 CHIEF COMPLAINT: Abdominal pain. HISTORY OF PRESENT ILLNESS: The patient is a 56-year-old male who had acute onset of right upper quadrant pain this morning. It is a sharp, severe pain that is worse with movement, worse with taking a deep breath. He has had increasing nausea, vomiting over the last week that he relates to sinus drainage, although his sinus drainage is related to allergy and has not been increased or worsened lately. He has not had this kind of pain before. He denies any NSAID use. He says he has a remote history of ulcers years ago. PAST MEDICAL HISTORY: 1. HIV positive. 2. Hypercholesterolemia. PAST SURGICAL HISTORY: 1. Laparoscopic appendectomy. 2. Varicocele surgery in the past, it sounds as though it is in the inguinal location. SOCIAL HISTORY: He is employed. He smokes a pack per day. He has a remote history of heavy drug use and based on that, he asked that I limit the amount of narcotics that he takes in the hospital, he asked that he not be given a prescription for hydrocodone or oxycodone when he leaves the hospital, he would prefer Ultram if possible. I explained to him that I would give him a p.r.n. order in the hospital for narcotics, but also a p.r.n. order for Ultram, so that way, while he is in the hospital, he has the ability to take the medication required for reasonable pain control, but that certainly he could opt for nonnarcotic if his pain could be controlled with nonnarcotic. He is agreeable to that plan. FAMILY HISTORY: Noncontributory to this illness. ALLERGIES: No known drug allergies. CURRENT MEDICATIONS: Include: 1. Dilaudid. 2. Zofran. 3. I have ordered 2 grams of cefoxitin IV preoperatively. REVIEW OF SYSTEMS: CONSTITUTIONAL: No fevers or chills. EYES: No abrupt loss of vision or double vision. EARS, NOSE, MOUTH AND THROAT: No loss of hearing or ringing in his ears. CARDIOVASCULAR: No chest pain or heart palpitations. RESPIRATORY: No cough or shortness of breath. GASTROINTESTINAL: See HPI. GENITOURINARY: No dysuria or hematuria. HEMATOLOGIC: No easy bleeding or bruising. MUSCULOSKELETAL: No new myalgias or arthralgias. He does have weakness and pain in his hands and arms. He has had ulnar release recently. DERMATOLOGIC: No new skin rashes or lesions. PSYCHIATRIC: Denies depression or anxiety. NEUROLOGIC: Denies headaches or seizures. PHYSICAL EXAMINATION: VITAL SIGNS: His temperature is 98.8, his pulse is 99, respiratory rate 24, blood pressure is 114/71, O2 sats 94% on room air. GENERAL: This is a well-developed, thin male with a BMI of 22.3. He does not appear to feel well. He is holding his right upper quadrant due to pain. He is alert and oriented x 3. EYES: Pupils are 2 mm in diameter, equal, round and reactive. Sclerae are nonicteric. HENT: Head is atraumatic. Mucous membranes are moist. Face is symmetric. NECK: Supple, without cervical lymphadenopathy, no supraclavicular lymphadenopathy. Neck is nontender without masses. CARDIOVASCULAR: Palpation of his right radial pulses, he has 2+ right radial pulse, slightly tachycardic with a heart rate of 99. No pedal edema. RESPIRATORY: His respirations are nonlabored. CHEST WALL: Nontender to palpation. He is on room air. ABDOMEN: Soft, nondistended. He is exquisitely tender in the right lower quadrant and right upper quadrant with rebound. He has incisions consistent with varicocele repair in the inguinal region as well as laparoscopic appendectomy. NEUROLOGIC: Alert and oriented x 3. Can move all 4 extremities without difficulty. He has weakened lab asst strength, equal bilaterally. He says he has decreased lab asst strength as his baseline. Recently, he has had trouble with hand weakness. He has equal and strong plantarflexion and extension on both feet. DERMATOLOGIC: Exposed portions of the skin are unremarkable without rashes or lesions. PSYCHIATRIC: He is cooperative with appropriate mood and affect. LABORATORY DATA: Reviewed. CT scan image and report were reviewed. ASSESSMENT: 1. Acute abdomen with peritonitis, suspect perforated ulcer. However, other causes of pneumoperitoneum have not been excluded. 2. Sepsis, present on admission due to his perforated viscus with a white count of 17 and a heart rate of 99. 3. Human immunodeficiency virus positive status. 4. Hypercholesterolemia. PLAN: The patient is being taken emergently to the operating room for diagnostic laparoscopy, possible open, possible repair of perforated ulcer, possible bowel resection, possible ostomy. I discussed the nature of the exploratory surgery and he is agreeable. The risks of bleeding, infection, failure of any repair performed requiring additional surgery, injury to intra-abdominal structures, need to convert to open and risk of requiring an ostomy that would likely be temporary were all discussed with him as well as the remote risk of heart attack, stroke, DVT, PE, pneumonia, . He desires to proceed. Questions were answered. RACHAEL MARTINEZ MD DR: ZION/iván JOB#: [id number] / [id number] AV Mello IRA MD MTDD
[2016-10-21] MEDS: IV NORMAL SALINE 1000ML BAG 1,000 ML IV SCH ×3 (01:45→22:17)
[2016-10-21 03:00] VITALS: BP 108/62
[2016-10-21 04:45] LABS: BASO % 0 % (0-3); EOS % 0 % (0-3); HEMATOCRIT 36.5 % (39.0-53.0); HEMOGLOBIN 12.5 g/dL (13.0-17.5); LYMPH # 1.1 x10^3/uL (1.0-4.8); LYMPH % 5 % (24-48); MEAN CORPUSCULAR HEMOGLOBIN 34 pg (25-35); MEAN CORPUSCULAR HGB CONC 34 g/dL (31-37); MEAN CORPUSCULAR VOLUME 99 fL (79-100); MONO % 4 % (0-9); NEUT % 90 % (31-73); PLATELET COUNT 204 x10^3/uL (140-400); RED CELL DISTRIBUTION WIDTH 12.8 % (11.5-14.5); WHITE BLOOD COUNT 19.6 x10^3/uL (4.0-11.0)
[2016-10-21 05:10] LABS: ALBUMIN/GLOBULIN RATIO 1.1 (1.0-1.7); CALCIUM 8.8 mg/dL (8.5-10.1); CREATININE 1.2 mg/dL (0.7-1.3); GFR 62.6; POTASSIUM 4.5 mmol/L (3.5-5.1); TOTAL BILIRUBIN 1.1 mg/dL (0.2-1.0); TOTAL PROTEIN 5.8 g/dL (6.4-8.2)
[2016-10-21 07:00] VITALS: BP 98/48
[2016-10-21] MEDS: PANTOPRAZOLE IV PUSH 40 MG VIAL. IVP SCH ×2 (08:19→22:18)
[2016-10-21] MEDS: HYDROmorphone 2 MG/ML VIAL IV/SQ PRN (09:49)
[2016-10-21 11:00] VITALS: BP 96/47
--- NOTE | 2016-10-21 13:02 | PDOC ---
PROGRESS NOTES Chief Complaint Chief Complaint cc: abdominal pain Perforated prepyloric ulcer, possible due to NSAIDS, S/P Laparoscopic repair of perforated gastric ulcer Leucocytosis HIV on HAART Dehydration Plan on IV ZOSYN IV NS Pt pulled NG this am Pain control with IV Dilaudid, Avoid co2 narcosis IV Protonix Follow blood cx Resume home medications from am, If Gen Tahmina ok with it. labs reviewed, d/w family at bedside History of Present Illness History of Present Illness no flatus no bm no fever Vitals Vitals Vital Signs Date Time Temp Pulse Resp B/P (MAP) Pulse Ox O2 Delivery O2 Flow Rate FiO2 10/21/16 11:00 98.7 88 20 96/47 (63) 92 Room Air 98.7 10/21/16 07:00 2.0 Physical Exam General: Alert, Oriented X3, Cooperative, No acute distress, Other (in discomfort from NGT) Heart: Normal S1 Lungs: Clear Abdomen: Other (3 lap wounds, loooking good, hypoactive BS< tympanitic, tender to mod palp) Extremities: No clubbing, No cyanosis, No edema, Normal pulses, No tenderness/ swelling Skin: No rashes, No breakdown, No significant lesion Labs LABS Laboratory Tests Test 10/21/16 03:56 White Blood Count 19.6 x10^3/uL (4.0-11.0) Red Blood Count 3.70 x10^6/uL (4.30-5.70) Hemoglobin 12.5 g/dL (13.0-17.5) Hematocrit 36.5 % (39.0-53.0) Mean Corpuscular Volume 99 fL (79-100) Mean Corpuscular Hemoglobin 34 pg (25-35) Mean Corpuscular Hemoglobin Concent 34 g/dL (31-37) Red Cell Distribution Width 12.8 % (11.5-14.5) Platelet Count 204 x10^3/uL (140-400) Neutrophils (%) (Auto) 90 % (31-73) Lymphocytes (%) (Auto) 5 % (24-48) Monocytes (%) (Auto) 4 % (0-9) Eosinophils (%) (Auto) 0 % (0-3) Basophils (%) (Auto) 0 % (0-3) Neutrophils # (Auto) 17.7 x10^3uL (1.8-7.7) Lymphocytes # (Auto) 1.1 x10^3/uL (1.0-4.8) Monocytes # (Auto) 0.8 x10^3/uL (0.0-1.1) Eosinophils # (Auto) 0.0 x10^3/uL (0.0-0.7) Basophils # (Auto) 0.0 x10^3/uL (0.0-0.2) Sodium Level 141 mmol/L (136-145) Potassium Level 4.5 mmol/L (3.5-5.1) Chloride Level 108 mmol/L (98-107) Carbon Dioxide Level 26 mmol/L (21-32) Anion Gap 7 (6-14) Blood Urea Nitrogen 14 mg/dL (8-26) Creatinine 1.2 mg/dL (0.7-1.3) Estimated GFR (Cockcroft-Gault) 62.6 BUN/Creatinine Ratio 12 (6-20) Glucose Level 125 mg/dL (70-99) Calcium Level 8.8 mg/dL (8.5-10.1) Total Bilirubin 1.1 mg/dL (0.2-1.0) Aspartate Amino Transf (AST/SGOT) 52 U/L (15-37) Alanine Aminotransferase (ALT/SGPT) 73 U/L (16-63) Alkaline Phosphatase 47 U/L (46-116) Total Protein 5.8 g/dL (6.4-8.2) Albumin 3.0 g/dL (3.4-5.0) Albumin/Globulin Ratio 1.1 (1.0-1.7) Comment Review of Relevant I have reviewed the following items adele (where applicable) has been applied. Labs Laboratory Tests Test 10/20/16 10:18 10/20/16 11:40 10/21/16 03:56 White Blood Count 17.0 x10^3/uL (4.0-11.0) 19.6 x10^3/uL (4.0-11.0) Red Blood Count 4.37 x10^6/uL (4.30-5.70) 3.70 x10^6/uL (4.30-5.70) Hemoglobin 15.2 g/dL (13.0-17.5) 12.5 g/dL (13.0-17.5) Hematocrit 43.4 % (39.0-53.0) 36.5 % (39.0-53.0) Mean Corpuscular Volume 99 fL (79-100) 99 fL (79-100) Mean Corpuscular Hemoglobin 35 pg (25-35) 34 pg (25-35) Mean Corpuscular Hemoglobin Concent 35 g/dL (31-37) 34 g/dL (31-37) Red Cell Distribution Width 12.8 % (11.5-14.5) 12.8 % (11.5-14.5) Platelet Count 275 x10^3/uL (140-400) 204 x10^3/uL (140-400) Neutrophils (%) (Auto) 87 % (31-73) 90 % (31-73) Lymphocytes (%) (Auto) 6 % (24-48) 5 % (24-48) Monocytes (%) (Auto) 7 % (0-9) 4 % (0-9) Eosinophils (%) (Auto) 0 % (0-3) 0 % (0-3) Basophils (%) (Auto) 0 % (0-3) 0 % (0-3) Neutrophils # (Auto) 14.7 x10^3uL (1.8-7.7) 17.7 x10^3uL (1.8-7.7) Lymphocytes # (Auto) 1.1 x10^3/uL (1.0-4.8) 1.1 x10^3/uL (1.0-4.8) Monocytes # (Auto) 1.2 x10^3/uL (0.0-1.1) 0.8 x10^3/uL (0.0-1.1) Eosinophils # (Auto) 0.0 x10^3/uL (0.0-0.7) 0.0 x10^3/uL (0.0-0.7) Basophils # (Auto) 0.1 x10^3/uL (0.0-0.2) 0.0 x10^3/uL (0.0-0.2) Segmented Neutrophils % 76 % (35-66) Band Neutrophils % 6 % (0-9) Lymphocytes % 8 % (24-48) Monocytes % 10 % (0-10) Hypersegmented Neutrophils Present Platelet Estimate Adequate (ADEQUATE) Prothrombin Time 13.0 SEC (11.7-14.0) Prothromb Time International Ratio 1.0 (0.8-1.1) Activated Partial Thromboplast Time 29 SEC (24-38) Sodium Level 139 mmol/L (136-145) 141 mmol/L (136-145) Potassium Level 4.2 mmol/L (3.5-5.1) 4.5 mmol/L (3.5-5.1) Chloride Level 100 mmol/L (98-107) 108 mmol/L (98-107) Carbon Dioxide Level 28 mmol/L (21-32) 26 mmol/L (21-32) Anion Gap 11 (6-14) 7 (6-14) Blood Urea Nitrogen 15 mg/dL (8-26) 14 mg/dL (8-26) Creatinine 1.3 mg/dL (0.7-1.3) 1.2 mg/dL (0.7-1.3) Estimated GFR (Cockcroft-Gault) 69.1 62.6 Glucose Level 146 mg/dL (70-99) 125 mg/dL (70-99) Calcium Level 9.9 mg/dL (8.5-10.1) 8.8 mg/dL (8.5-10.1) Total Bilirubin 1.0 mg/dL (0.2-1.0) 1.1 mg/dL (0.2-1.0) Direct Bilirubin 0.3 mg/dL (0.0-0.2) Aspartate Amino Transf (AST/SGOT) 18 U/L (15-37) 52 U/L (15-37) Alanine Aminotransferase (ALT/SGPT) 24 U/L (16-63) 73 U/L (16-63) Alkaline Phosphatase 78 U/L (46-116) 47 U/L (46-116) Creatine Kinase 109 U/L (39-308) Creatine Kinase MB (Mass) 1.5 ng/mL (0.0-3.6) Creatine Kinase MB Relative Index 1.4 % (0-4) Troponin I Quantitative < 0.017 ng/mL (0.000-0.055) Total Protein 7.2 g/dL (6.4-8.2) 5.8 g/dL (6.4-8.2) Albumin 4.3 g/dL (3.4-5.0) 3.0 g/dL (3.4-5.0) Lipase 97 U/L (73-393) Urine Collection Type Void Urine Color Thais Urine Clarity Clear Urine pH 5.5 Urine Specific [place] >=1.030 Urine Protein Negative mg/dL (NEG-TRACE) Urine Glucose (UA) Negative mg/dL (NEG) Urine Ketones (Stick) Trace mg/dL (NEG) Urine Blood Negative (NEG) Urine Nitrite Negative (NEG) Urine Bilirubin Small (NEG) Urine Urobilinogen Dipstick 1.0 mg/dL (0.2 mg/dL) Urine Leukocyte Esterase Negative (NEG) Urine RBC Occ /HPF (0-2) Urine WBC Occ /HPF (0-4) Urine Bacteria 0 /HPF (0-FEW) Urine Hyaline Casts Occasional /HPF Urine Mucus Mod /LPF Urine Opiates Screen Pos (NEG) Urine Methadone Screen Neg (NEG) Urine Barbiturates Neg (NEG) Urine Phencyclidine Screen Neg (NEG) Urine Amphetamine/Methamphetamine Neg (NEG) Urine Benzodiazepines Screen Neg (NEG) Urine Cocaine Screen Neg (NEG) Urine Cannabinoids Screen Neg (NEG) Urine Ethyl Alcohol Neg (NEG) BUN/Creatinine Ratio 12 (6-20) Albumin/Globulin Ratio 1.1 (1.0-1.7) Laboratory Tests Test 10/21/16 03:56 White Blood Count 19.6 x10^3/uL (4.0-11.0) Red Blood Count 3.70 x10^6/uL (4.30-5.70) Hemoglobin 12.5 g/dL (13.0-17.5) Hematocrit 36.5 % (39.0-53.0) Mean Corpuscular Volume 99 fL (79-100) Mean Corpuscular Hemoglobin 34 pg (25-35) Mean Corpuscular Hemoglobin Concent 34 g/dL (31-37) Red Cell Distribution Width 12.8 % (11.5-14.5) Platelet Count 204 x10^3/uL (140-400) Neutrophils (%) (Auto) 90 % (31-73) Lymphocytes (%) (Auto) 5 % (24-48) Monocytes (%) (Auto) 4 % (0-9) Eosinophils (%) (Auto) 0 % (0-3) Basophils (%) (Auto) 0 % (0-3) Neutrophils # (Auto) 17.7 x10^3uL (1.8-7.7) Lymphocytes # (Auto) 1.1 x10^3/uL (1.0-4.8) Monocytes # (Auto) 0.8 x10^3/uL (0.0-1.1) Eosinophils # (Auto) 0.0 x10^3/uL (0.0-0.7) Basophils # (Auto) 0.0 x10^3/uL (0.0-0.2) Sodium Level 141 mmol/L (136-145) Potassium Level 4.5 mmol/L (3.5-5.1) Chloride Level 108 mmol/L (98-107) Carbon Dioxide Level 26 mmol/L (21-32) Anion Gap 7 (6-14) Blood Urea Nitrogen 14 mg/dL (8-26) Creatinine 1.2 mg/dL (0.7-1.3) Estimated GFR (Cockcroft-Gault) 62.6 BUN/Creatinine Ratio 12 (6-20) Glucose Level 125 mg/dL (70-99) Calcium Level 8.8 mg/dL (8.5-10.1) Total Bilirubin 1.1 mg/dL (0.2-1.0) Aspartate Amino Transf (AST/SGOT) 52 U/L (15-37) Alanine Aminotransferase (ALT/SGPT) 73 U/L (16-63) Alkaline Phosphatase 47 U/L (46-116) Total Protein 5.8 g/dL (6.4-8.2) Albumin 3.0 g/dL (3.4-5.0) Albumin/Globulin Ratio 1.1 (1.0-1.7) Medications Current Medications Morphine Sulfate 4 mg PRN Q15MIN PRN IV/SQ PAIN GREATER THAN 3/10 Last administered on 10/21/16 05:30; Start 10/20/16 at 10:15; Stop 10/21/16 at 10:14 ; Status DC Sodium Chloride 1,000 ml @ 1,000 mls/hr Q1H IV Last administered on 10/20/16 10:27; Start 10/20/16 at 10:15; Stop 10/20/16 at 11:14; Status DC Ondansetron HCl (Zofran) 4 mg 1X ONCE IV Last administered on 10/20/16 10:27 ; Start 10/20/16 at 10:15; Stop 10/20/16 at 10:16; Status DC Hydromorphone HCl (Dilaudid) 1 mg PRN Q15MIN PRN IV/SQ PAIN GREATER THAN 3/10 Last administered on 10/21/16 09:49; Start 10/20/16 at 11:00; Stop 10/21/16 at 10:59; Status DC Iohexol (Omnipaque 300 Mg/ml) 75 ml 1X ONCE IV Last administered on 10/20/16 11:29; Start 10/20/16 at 11:30; Stop 10/20/16 at 11:31; Status DC Info (Do NOT chart on this entry -- for MONITORING) 1 each PRN DAILY PRN MC SEE COMMENTS; Start 10/20/16 at 11:30; Stop 10/22/16 at 11:29 Dexamethasone Sodium Phosphate (Decadron) 20 mg STK-MED ONCE .ROUTE ; Start at 12:24; Stop 10/20/16 at 12:25; Status DC Ondansetron HCl (Zofran) 4 mg STK-MED ONCE .ROUTE ; Start 10/20/16 at 12:24; Stop 10/20/16 at 12:25; Status DC Propofol 20 ml @ As Directed STK-MED ONCE IV ; Start 10/20/16 at 12:24; Stop at 12:25; Status DC Lidocaine HCl (Lidocaine Pf 2% Vial) 5 ml STK-MED ONCE .ROUTE ; Start 10/20/16 at 12:24; Stop 10/20/16 at 12:25; Status DC Midazolam HCl (Versed) 2 mg STK-MED ONCE .ROUTE ; Start 10/20/16 at 12:24; Stop 10/20/16 at 12:25; Status DC Rocuronium [place] (Zemuron) 50 mg STK-MED ONCE .ROUTE ; Start 10/20/16 at 12:24 ; Stop 10/20/16 at 12:25; Status DC Fentanyl Citrate (Fentanyl 2ml Vial) 100 mcg STK-MED ONCE .ROUTE ; Start at 12:24; Stop 10/20/16 at 12:25; Status DC Ondansetron HCl (Zofran) 4 mg PRN Q8HRS PRN IV NAUSEA/VOMITING; Start 10/20/16 at 12:45; Stop 10/21/16 at 12:44; Status DC Morphine Sulfate 2 mg PRN Q2HR PRN IV PAIN Last administered on 10/21/16 08:19 ; Start 10/20/16 at 12:45; Stop 10/21/16 at 12:44; Status DC Ondansetron HCl (Zofran) 4 mg PRN Q6HRS PRN IV NAUSEA/VOMITING; Start 10/20/16 at 13:00; Stop 10/21/16 at 12:59; Status DC Fentanyl Citrate (Fentanyl 2ml Vial) 25 mcg PRN Q5MIN PRN IV MILD PAIN; Start 10/20/16 at 13:00; Stop 10/21/16 at 12:59; Status DC Fentanyl Citrate (Fentanyl 2ml Vial) 50 mcg PRN Q5MIN PRN IV MODERATE PAIN; Start 10/20/16 at 13:00; Stop 10/21/16 at 12:59; Status DC Morphine Sulfate 1 mg PRN Q10MIN PRN IV SEVERE PAIN; Start 10/20/16 at 13:00; Stop 10/21/16 at 12:59; Status DC Ringer's Solution 1,000 ml @ 30 mls/hr Q24H IV Last administered on 10/20/16 15:50; Start 10/20/16 at 12:48; Stop 10/21/16 at 00:47; Status DC Lidocaine HCl 2 ml PRN 1X PRN ID PRIOR TO IV START; Start 10/20/16 at 13:00; Stop 10/21/16 at 12:59; Status DC Hydromorphone HCl (Dilaudid) 0.5 mg PRN Q10MIN PRN IV SEV PAIN, Second choice Last administered on 10/21/16 09:20; Start 10/20/16 at 13:00; Stop 10/21/16 at 12:59; Status DC Prochlorperazine Edisylate (Compazine) 5 mg PACU PRN PRN IV NAUSEA, MRX1; Start 10/20/16 at 13:00; Stop 10/21/16 at 12:59; Status DC Bupivacaine HCl/ Epinephrine Bitart (Sensorcain-Mpf Epi 0.5%-1:[id number]) 30 ml STK -MED ONCE .ROUTE Last administered on 10/20/16 14:11; Start 10/20/16 at 12:48 ; Stop 10/20/16 at 12:49; Status DC Succinylcholine Chloride (Anectine) 200 mg STK-MED ONCE .ROUTE ; Start 10/20/16 at 13:05; Stop 10/20/16 at 13:06; Status DC Cefoxitin Sodium 100 ml @ As Directed STK-MED ONCE IV ; Start 10/20/16 at 13:33 ; Stop 10/20/16 at 13:34; Status DC Cefoxitin Sodium 2 gm/Sodium Chloride 100 ml @ 200 mls/hr 1X ONCE IV ; Start 10/20/16 at 13:45; Stop 10/20/16 at 14:14; Status UNV Cefoxitin Sodium 100 ml @ 200 mls/hr ONCE ONCE IV Last administered on 13:47; Start 10/20/16 at 14:00; Stop 10/20/16 at 14:29; Status DC Glycopyrrolate (Robinul) 1 mg STK-MED ONCE .ROUTE ; Start 10/20/16 at 14:16; Stop 10/20/16 at 14:17; Status DC Fentanyl Citrate (Fentanyl 2ml Vial) 100 mcg STK-MED ONCE .ROUTE ; Start at 14:27; Stop 10/20/16 at 14:28; Status DC Neostigmine Methylsulfate 5 mg STK-MED ONCE .ROUTE ; Start 10/20/16 at 14:50; Stop 10/20/16 at 14:51; Status DC Sevoflurane (Ultane) 60 ml STK-MED ONCE IH ; Start 10/20/16 at 15:20; Stop 10/20 at 15:21; Status DC Sodium Chloride 1,000 ml @ 100 mls/hr Q10H IV Last administered on 10/21/16 05:31; Start 10/20/16 at 15:45 Piperacillin Sod/ Tazobactam Sod 3.375 gm/Sodium Chloride 50 ml @ 100 mls/hr Q6HRS IV Last administered on 10/21/16 12:54; Start 10/20/16 at 18:00 Pantoprazole Sodium (Protonix Vial) 40 mg BID IVP Last administered on 08:19; Start 10/20/16 at 15:45 Hydromorphone HCl (Dilaudid) 0.4 mg PRN Q4HRS PRN IVP PAIN Last administered on 10/20/16 18:11; Start 10/20/16 at 15:45 Tramadol HCl (Ultram) 50 mg PRN Q6HRS PRN PO PAIN; Start 10/20/16 at 15:45 Oxycodone/ Acetaminophen (Percocet 5/325) 2 tab PRN Q4HRS PRN PO PAIN; Start at 15:45 Phenylephrine HCl 1 mg STK-MED ONCE IV ; Start 10/20/16 at 15:58; Stop 10/20/16 at 15:59; Status DC Esmolol HCl (Brevibloc) 100 mg STK-MED ONCE IV ; Start 10/20/16 at 15:58; Stop 10/20/16 at 15:59; Status DC Throat Lozenges (Chloraseptic) 1 spray PRN Q2HR PRN PO SORE THROAT Last administered on 10/21/16 05:31; Start 10/20/16 at 21:45 Hydromorphone HCl (Dilaudid) 1 mg PRN Q2HR PRN IV PAIN; Start 10/21/16 at 11:30 Active Scripts Active Reported Atripla Tablet (Efavirenz/Emtricitab/Tenofovir) 1 Each Tablet 1 Tab PO DAILY Atorvastatin Calcium 10 Mg Tablet 1 Tab PO QODAY Vitals/I & O Vital Sign - Last 24 Hours 10/20/16 10/20/16 10/20/16 10/20/16 15:42 15:42 15:57 16:10 Temp 98.2 98.2 98.2 98.2 Pulse 81 83 81 Resp 20 20 22 B/P (MAP) 118/70 115/70 114/69 Pulse Ox 100 95 96 O2 Delivery Simple Mask Mask Simple Mask Nasal Cannula O2 Flow Rate 10 10 10 2 10/20/16 10/20/16 10/20/16 10/20/16 16:16 16:25 16:42 16:42 Temp 98.2 98.4 98.4 98.2 98.4 98.4 Pulse 78 83 83 Resp 20 20 20 B/P (MAP) 115/65 106/69 (81) 106/69 (81) Pulse Ox 99 91 91 O2 Delivery Nasal Cannula Nasal Cannula Room Air Nasal Cannula O2 Flow Rate 2 2 2.0 10/20/16 10/20/16 10/20/16 10/20/16 16:53 17:08 17:25 17:38 Temp 98.4 98.4 98.4 98.4 98.4 98.4 98.4 98.4 Pulse 99 99 99 99 Resp 20 20 20 20 B/P (MAP) 107/70 (82) 113/74 (87) 109/72 (84) 105/71 (82) Pulse Ox 93 93 93 93 O2 Delivery Nasal Cannula Nasal Cannula Nasal Cannula Nasal Cannula O2 Flow Rate 2.0 2.0 2.0 2.0 10/20/16 10/20/16 10/20/16 10/20/16 18:09 18:11 18:34 18:38 Temp 98.4 98.4 98.4 98.4 Pulse 99 98 Resp 20 16 20 B/P (MAP) 109/69 (82) 111/74 (86) Pulse Ox 93 98 O2 Delivery Nasal Cannula Room Air Nasal Cannula Nasal Cannula O2 Flow Rate 2.0 2.0 2.0 10/20/16 10/20/16 10/20/16 10/20/16 18:41 19:00 20:00 21:12 Temp 98.2 98.2 Pulse 112 Resp 16 18 B/P (MAP) 127/70 (89) Pulse Ox 95 97 O2 Delivery Nasal Cannula Nasal Cannula Nasal Cannula Room Air O2 Flow Rate 2.0 2.0 2.0 10/20/16 10/21/16 10/21/16 10/21/16 23:00 00:39 02:59 03:00 Temp 98.1 97.5 98.1 97.5 Pulse 98 63 Resp 20 18 18 B/P (MAP) 107/63 (78) 108/62 (77) Pulse Ox 95 96 O2 Delivery Nasal Cannula Room Air Room Air Nasal Cannula O2 Flow Rate 2.0 2.0 10/21/16 10/21/16 10/21/16 10/21/16 03:45 05:30 07:00 08:00 Temp 98.5 98.5 Pulse 79 Resp 18 18 20 B/P (MAP) 98/48 (65) Pulse Ox 97 O2 Delivery Room Air Nasal Cannula Room Air O2 Flow Rate 2.0 10/21/16 11:00 Temp 98.7 98.7 Pulse 88 Resp 20 B/P (MAP) 96/47 (63) Pulse Ox 92 O2 Delivery Room Air Intake and Output 10/20/16 10/20/16 10/21/16 15:00 23:00 07:00 Intake Total 1100 ml 2200 ml 0 ml Output Total 225 ml 1000 ml Balance 1100 ml 1975 ml -1000 ml TORO LEE MD October 21, 2016 13:02
--- NOTE | 2016-10-21 13:13 | PDOC ---
Provider Note Provider Note I saw him twice today. the first time was this am and he c/o severe right sided abd pain--he said the pain was the same as preop but instead of being diffuse across entire abd it is now only around the right side. He pulled out his ng tube. he was laying on his left side and gripping the bedrail very strongly and could not be persuaded to lie flat. his reservationist strength was noticeably stronger than it was yest preop when he indicated he has chronic bilateral hand weakness. i saw him again within the last 30 minutes. when i entered the room he was calm , laying on his back and pressing the nurse button to ask for help going to the bathroom. he lifts his gown and points to the RUQ incision as the site of his pain. the rest of his abd is nontender. exam benign. afeb vss inc cdi a/p pod #1 lap repair of perf prepyloric ulcer. hx of drug use in past may complicate post op pain management. also is npo so no oral meds can be given and nsaids/toradol not ideal due to ulcer perforation. for now he is much more comfortable. cont iv ppi and iv abx. do not replace ng--dw nurse and order left in computer. RACHAEL MARTINEZ MD October 21, 2016 13:13
[2016-10-21 15:00] VITALS: BP 101/50
[2016-10-21] MEDS: HYDROmorphone 2 MG/ML VIAL IV PRN ×3 (16:18→22:33)
[2016-10-21 19:00] VITALS: BP 106/61
[2016-10-21] MEDS: ENOXAPARIN 40 MG/0.4 ML SYRINGE. SQ SCH (22:18)
[2016-10-21 23:05] VITALS: BP 114/61
[2016-10-22] MEDS: PIPERACILLIN/TAZOBACTAM 3.375 GM in IV NORMAL SALINE 50ML 50 ML IV SCH ×5 (00:20→23:57)
[2016-10-22] MEDS: HYDROmorphone 2 MG/ML VIAL IV PRN ×6 (00:56→21:33)
--- NOTE | 2016-10-22 00:57 | CONS ---
DATE OF CONSULTATION: 10/21/2016 REQUESTING PHYSICIAN: Dr. Kymberly Wadsworth. PRIMARY CARE PHYSICIAN: Dr. Armond Rice. REASON FOR CONSULTATION: Perforated prepyloric ulcer. HISTORY OF PRESENT ILLNESS: This is a 56-year-old gentleman who presented to [facility] on 10/20/2016 with abdominal pain. He was found to have a perforated prepyloric abdominal ulcer and underwent a laparoscopic repair. He admits to taking 8 to 10 ibuprofen a day for pain in his hands secondary to carpal tunnel as well as a recent right elbow surgery. He had some increased nausea and vomiting over the last week and had some sinus drainage. He states that he had an upper endoscopy and colonoscopy 7 years ago in [place]. He reports that he had polyps at that time. His history per the chart says that he has a remote history of ulcers. However, he denied this to me. PAST MEDICAL HISTORY: 1. HIV Positive. 2. Hypercholesterolemia. 3. Laparoscopic appendectomy. 4. Varicocele surgery. FAMILY MEDICAL HISTORY: He denies colon cancer. ALLERGIES: No known drug allergies. MEDICATIONS: 1. Dilaudid. 2. Zofran. 3. Cefoxitin. SOCIAL HISTORY: He smokes a pack of cigarettes a day. He has a remote history of drug abuse. He denies alcohol. REVIEW OF SYSTEMS: A 13-point review of systems was done. It is positive as per HPI and otherwise negative. PHYSICAL EXAMINATION: VITAL SIGNS: Temperature is 97, blood pressure is 96/47, and heart rate 88. GENERAL: He is a thin male in no apparent distress. HEENT: Oropharynx is clear. CARDIOVASCULAR: S1, S2. LUNGS: Decreased breath sounds anteriorly. ABDOMEN: Soft and diffusely tender to palpation. EXTREMITIES: No edema. He does have a surgical scar on his right elbow. LABORATORY DATA: White blood cell count of 96 with hemoglobin of 12.5, MCV of 95, and platelets are at 204. Chemistries show elevated LFTs with an AST of 52 and ALT of 73. IMAGING: CT of the abdomen and pelvis on 10/20/2016 showed moderate ____ peritoneum and a small amount of free fluid. ASSESSMENT AND PLAN: 1. Perforated prepyloric ulcer. Status post laparoscopic repair. Most likely secondary to heavy nonsteroidal antiinflammatory drugs use. He will need a followup EGD in approximately 4 weeks. We will continue to follow him during his hospitalization and plan for an outpatient procedure. 2. History of colon polyps. He reports colon polyps on colonoscopy in 2006. He will need a followup colonoscopy for further evaluation. 3. Elevated ____. We will continue to monitor. Thank you for allowing me to participate in the care of this patient. SUSANNA ARGUELLO MD DR: FLIP/iván JOB#: [id number] / [id number] Dr. Armond Knott
[2016-10-22 03:00] VITALS: BP 107/64
[2016-10-22 07:00] VITALS: BP 106/58
[2016-10-22] MEDS: PANTOPRAZOLE IV PUSH 40 MG VIAL. IVP SCH (09:03)
[2016-10-22] MEDS: IV NORMAL SALINE 1000ML BAG 1,000 ML IV SCH ×2 (09:08→17:45)
--- NOTE | 2016-10-22 09:26 | PDOC ---
Provider Note Provider Note pain improved today. mild nausea. voiding well. ambulated in halls several times. afeb vss appears well abd soft nd approp tender at [facility] cdi a/p pod #2 lap repair perf ulcer. given his nausea, would not start clears or oral meds today. anticipate starting clears/oral meds on sunday (tomorrow). d/w pt and nurse. RACHAEL MARTINEZ MD October 22, 2016 09:26
[2016-10-22 11:00] VITALS: BP 117/73
--- NOTE | 2016-10-22 13:01 | PDOC ---
PROGRESS NOTES Chief Complaint Chief Complaint cc: abdominal pain Perforated prepyloric ulcer, possible due to NSAIDS, S/P Laparoscopic repair of perforated gastric ulcer Leucocytosis HIV on HAART Dehydration Plan on IV ZOSYN IV NS Pain control with IV Dilaudid, Avoid co2 narcosis IV Protonix Follow blood cx Resume home medications from Per Surgery. labs reviewed, d/w family at bedside History of Present Illness History of Present Illness no flatus no bm no fever Vitals Vitals Vital Signs Date Time Temp Pulse Resp B/P (MAP) Pulse Ox O2 Delivery O2 Flow Rate FiO2 10/22/16 11:00 98.4 77 20 117/73 (88) 95 Room Air 98.4 10/21/16 07:00 2.0 Physical Exam General: Alert, Oriented X3, Cooperative, No acute distress, Other (in discomfort from NGT) Heart: Normal S1 Lungs: Clear Abdomen: Other (3 lap wounds, loooking good, hypoactive BS< tympanitic, tender to mod palp) Extremities: No clubbing, No cyanosis, No edema, Normal pulses, No tenderness/ swelling Skin: No rashes, No breakdown, No significant lesion Comment Review of Relevant I have reviewed the following items adele (where applicable) has been applied. Labs Laboratory Tests Test 10/21/16 03:56 White Blood Count 19.6 x10^3/uL (4.0-11.0) Red Blood Count 3.70 x10^6/uL (4.30-5.70) Hemoglobin 12.5 g/dL (13.0-17.5) Hematocrit 36.5 % (39.0-53.0) Mean Corpuscular Volume 99 fL (79-100) Mean Corpuscular Hemoglobin 34 pg (25-35) Mean Corpuscular Hemoglobin Concent 34 g/dL (31-37) Red Cell Distribution Width 12.8 % (11.5-14.5) Platelet Count 204 x10^3/uL (140-400) Neutrophils (%) (Auto) 90 % (31-73) Lymphocytes (%) (Auto) 5 % (24-48) Monocytes (%) (Auto) 4 % (0-9) Eosinophils (%) (Auto) 0 % (0-3) Basophils (%) (Auto) 0 % (0-3) Neutrophils # (Auto) 17.7 x10^3uL (1.8-7.7) Lymphocytes # (Auto) 1.1 x10^3/uL (1.0-4.8) Monocytes # (Auto) 0.8 x10^3/uL (0.0-1.1) Eosinophils # (Auto) 0.0 x10^3/uL (0.0-0.7) Basophils # (Auto) 0.0 x10^3/uL (0.0-0.2) Sodium Level 141 mmol/L (136-145) Potassium Level 4.5 mmol/L (3.5-5.1) Chloride Level 108 mmol/L (98-107) Carbon Dioxide Level 26 mmol/L (21-32) Anion Gap 7 (6-14) Blood Urea Nitrogen 14 mg/dL (8-26) Creatinine 1.2 mg/dL (0.7-1.3) Estimated GFR (Cockcroft-Gault) 62.6 BUN/Creatinine Ratio 12 (6-20) Glucose Level 125 mg/dL (70-99) Calcium Level 8.8 mg/dL (8.5-10.1) Total Bilirubin 1.1 mg/dL (0.2-1.0) Aspartate Amino Transf (AST/SGOT) 52 U/L (15-37) Alanine Aminotransferase (ALT/SGPT) 73 U/L (16-63) Alkaline Phosphatase 47 U/L (46-116) Total Protein 5.8 g/dL (6.4-8.2) Albumin 3.0 g/dL (3.4-5.0) Albumin/Globulin Ratio 1.1 (1.0-1.7) Medications Current Medications Morphine Sulfate 4 mg PRN Q15MIN PRN IV/SQ PAIN GREATER THAN 3/10 Last administered on 10/21/16 05:30; Start 10/20/16 at 10:15; Stop 10/21/16 at 10:14 ; Status DC Sodium Chloride 1,000 ml @ 1,000 mls/hr Q1H IV Last administered on 10/20/16 10:27; Start 10/20/16 at 10:15; Stop 10/20/16 at 11:14; Status DC Ondansetron HCl (Zofran) 4 mg 1X ONCE IV Last administered on 10/20/16 10:27 ; Start 10/20/16 at 10:15; Stop 10/20/16 at 10:16; Status DC Hydromorphone HCl (Dilaudid) 1 mg PRN Q15MIN PRN IV/SQ PAIN GREATER THAN 3/10 Last administered on 10/21/16 09:49; Start 10/20/16 at 11:00; Stop 10/21/16 at 10:59; Status DC Iohexol (Omnipaque 300 Mg/ml) 75 ml 1X ONCE IV Last administered on 10/20/16t 11:29; Start 10/20/16 at 11:30; Stop 10/20/16 at 11:31; Status DC Info (Do NOT chart on this entry -- for MONITORING) 1 each PRN DAILY PRN MC SEE COMMENTS; Start 10/20/16 at 11:30; Stop 10/22/16 at 11:29; Status DC Dexamethasone Sodium Phosphate (Decadron) 20 mg STK-MED ONCE .ROUTE ; Start at 12:24; Stop 10/20/16 at 12:25; Status DC Ondansetron HCl (Zofran) 4 mg STK-MED ONCE .ROUTE ; Start 10/20/16 at 12:24; Stop 10/20/16 at 12:25; Status DC Propofol 20 ml @ As Directed STK-MED ONCE IV ; Start 10/20/16 at 12:24; Stop at 12:25; Status DC Lidocaine HCl (Lidocaine Pf 2% Vial) 5 ml STK-MED ONCE .ROUTE ; Start 10/20/16 at 12:24; Stop 10/20/16 at 12:25; Status DC Midazolam HCl (Versed) 2 mg STK-MED ONCE .ROUTE ; Start 10/20/16 at 12:24; Stop 10/20/16 at 12:25; Status DC Rocuronium [place] (Zemuron) 50 mg STK-MED ONCE .ROUTE ; Start 10/20/16 at 12:24 ; Stop 10/20/16 at 12:25; Status DC Fentanyl Citrate (Fentanyl 2ml Vial) 100 mcg STK-MED ONCE .ROUTE ; Start at 12:24; Stop 10/20/16 at 12:25; Status DC Ondansetron HCl (Zofran) 4 mg PRN Q8HRS PRN IV NAUSEA/VOMITING; Start 10/20/16 at 12:45; Stop 10/21/16 at 12:44; Status DC Morphine Sulfate 2 mg PRN Q2HR PRN IV PAIN Last administered on 10/21/16 08:19 ; Start 10/20/16 at 12:45; Stop 10/21/16 at 12:44; Status DC Ondansetron HCl (Zofran) 4 mg PRN Q6HRS PRN IV NAUSEA/VOMITING; Start 10/20/16 at 13:00; Stop 10/21/16 at 12:59; Status DC Fentanyl Citrate (Fentanyl 2ml Vial) 25 mcg PRN Q5MIN PRN IV MILD PAIN; Start 10/20/16 at 13:00; Stop 10/21/16 at 12:59; Status DC Fentanyl Citrate (Fentanyl 2ml Vial) 50 mcg PRN Q5MIN PRN IV MODERATE PAIN; Start 10/20/16 at 13:00; Stop 10/21/16 at 12:59; Status DC Morphine Sulfate 1 mg PRN Q10MIN PRN IV SEVERE PAIN; Start 10/20/16 at 13:00; Stop 10/21/16 at 12:59; Status DC Ringer's Solution 1,000 ml @ 30 mls/hr Q24H IV Last administered on 10/20/16 15:50; Start 10/20/16 at 12:48; Stop 10/21/16 at 00:47; Status DC Lidocaine HCl 2 ml PRN 1X PRN ID PRIOR TO IV START; Start 10/20/16 at 13:00; Stop 10/21/16 at 12:59; Status DC Hydromorphone HCl (Dilaudid) 0.5 mg PRN Q10MIN PRN IV SEV PAIN, Second choice Last administered on 10/21/16 09:20; Start 10/20/16 at 13:00; Stop 10/21/16 at 12:59; Status DC Prochlorperazine Edisylate (Compazine) 5 mg PACU PRN PRN IV NAUSEA, MRX1; Start 10/20/16 at 13:00; Stop 10/21/16 at 12:59; Status DC Bupivacaine HCl/ Epinephrine Bitart (Sensorcain-Mpf Epi 0.5%-1:128165) 30 ml JobSlot -MED ONCE .ROUTE Last administered on 10/20/16 14:11; Start 10/20/16 at 12:48 ; Stop 10/20/16 at 12:49; Status DC Succinylcholine Chloride (Anectine) 200 mg STK-MED ONCE .ROUTE ; Start 10/20/16 at 13:05; Stop 10/20/16 at 13:06; Status DC Cefoxitin Sodium 100 ml @ As Directed STK-MED ONCE IV ; Start 10/20/16 at 13:33 ; Stop 10/20/16 at 13:34; Status DC Cefoxitin Sodium 2 gm/Sodium Chloride 100 ml @ 200 mls/hr 1X ONCE IV ; Start 10/20/16 at 13:45; Stop 10/20/16 at 14:14; Status UNV Cefoxitin Sodium 100 ml @ 200 mls/hr ONCE ONCE IV Last administered on 13:47; Start 10/20/16 at 14:00; Stop 10/20/16 at 14:29; Status DC Glycopyrrolate (Robinul) 1 mg STK-MED ONCE .ROUTE ; Start 10/20/16 at 14:16; Stop 10/20/16 at 14:17; Status DC Fentanyl Citrate (Fentanyl 2ml Vial) 100 mcg STK-MED ONCE .ROUTE ; Start at 14:27; Stop 10/20/16 at 14:28; Status DC Neostigmine Methylsulfate 5 mg STK-MED ONCE .ROUTE ; Start 10/20/16 at 14:50; Stop 10/20/16 at 14:51; Status DC Sevoflurane (Ultane) 60 ml STK-MED ONCE IH ; Start 10/20/16 at 15:20; Stop 10/20 at 15:21; Status DC Sodium Chloride 1,000 ml @ 100 mls/hr Q10H IV Last administered on 10/22/16 09:08; Start 10/20/16 at 15:45 Piperacillin Sod/ Tazobactam Sod 3.375 gm/Sodium Chloride 50 ml @ 100 mls/hr Q6HRS IV Last administered on 10/22/16 05:30; Start 10/20/16 at 18:00 Pantoprazole Sodium (Protonix Vial) 40 mg BID IVP Last administered on 22:18; Start 10/20/16 at 15:45; Stop 10/21/16 at 22:55; Status DC Hydromorphone HCl (Dilaudid) 0.4 mg PRN Q4HRS PRN IVP PAIN Last administered on 10/20/16 18:11; Start 10/20/16 at 15:45; Stop 10/22/16 at 11:47; Status DC Tramadol HCl (Ultram) 50 mg PRN Q6HRS PRN PO MILD PAIN; Start 10/20/16 at 15:45 Oxycodone/ Acetaminophen (Percocet 5/325) 2 tab PRN Q4HRS PRN PO MODERATE - SEVERE PAIN; Start 10/20/16 at 15:45 Phenylephrine HCl 1 mg STK-MED ONCE IV ; Start 10/20/16 at 15:58; Stop 10/20/16 at 15:59; Status DC Esmolol HCl (Brevibloc) 100 mg STK-MED ONCE IV ; Start 10/20/16 at 15:58; Stop 10/20/16 at 15:59; Status DC Throat Lozenges (Chloraseptic) 1 spray PRN Q2HR PRN PO SORE THROAT Last administered on 10/21/16 05:31; Start 10/20/16 at 21:45 Hydromorphone HCl (Dilaudid) 1 mg PRN Q2HR PRN IV PAIN Last administered on 09:02; Start 10/21/16 at 11:30 Enoxaparin Sodium (Lovenox 40mg Syringe) 40 mg QHS SQ Last administered on 10/21 22:18; Start 10/21/16 at 21:00 Pantoprazole Sodium (Protonix Vial) 40 mg DAILYAC IVP Last administered on 10/22 09:03; Start 10/22/16 at 07:30 Active Scripts Active Reported Atripla Tablet (Efavirenz/Emtricitab/Tenofovir) 1 Each Tablet 1 Tab PO DAILY Atorvastatin Calcium 10 Mg Tablet 1 Tab PO QODAY Vitals/I & O Vital Sign - Last 24 Hours 10/21/16 10/21/16 10/21/16 10/21/16 15:00 19:00 19:49 19:59 Temp 98.7 98.6 98.7 98.6 Pulse 74 73 Resp 20 18 16 B/P (MAP) 101/50 (67) 106/61 (76) Pulse Ox 95 93 O2 Delivery Room Air Room Air Room Air Room Air 10/21/16 10/21/16 10/22/16 10/22/16 22:33 23:05 00:56 01:26 Temp 98.5 98.5 Pulse 90 Resp 16 18 16 16 B/P (MAP) 114/61 (78) Pulse Ox 93 91 91 O2 Delivery Room Air Room Air Room Air 10/22/16 10/22/16 10/22/16 10/22/16 03:00 05:30 06:00 07:00 Temp 98.6 98.8 98.6 98.8 Pulse 78 85 Resp 18 16 20 B/P (MAP) 107/64 (78) 106/58 (74) Pulse Ox 92 92 92 92 O2 Delivery Room Air Room Air Room Air Room Air 10/22/16 10/22/16 08:00 11:00 Temp 98.4 98.4 Pulse 77 Resp 20 B/P (MAP) 117/73 (88) Pulse Ox 95 O2 Delivery Room Air Room Air Intake and Output 10/21/16 10/21/16 10/22/16 15:00 23:00 07:00 Output Total 800 ml Balance -800 ml TORO LEE MD October 22, 2016 13:01
[2016-10-22 15:00] VITALS: BP 120/74
[2016-10-22 19:00] VITALS: BP 108/63
[2016-10-22] MEDS: ENOXAPARIN 40 MG/0.4 ML SYRINGE. SQ SCH (21:29)
[2016-10-22 23:00] VITALS: BP 124/72
[2016-10-23 03:00] VITALS: BP 113/57
[2016-10-23] MEDS: HYDROmorphone 2 MG/ML VIAL IV PRN ×2 (03:45→17:30)
[2016-10-23] MEDS: IV NORMAL SALINE 1000ML BAG 1,000 ML IV SCH ×2 (05:07→18:09)
[2016-10-23] MEDS: PIPERACILLIN/TAZOBACTAM 3.375 GM in IV NORMAL SALINE 50ML 50 ML IV SCH (05:36)
[2016-10-23 05:45] LABS: ALBUMIN 2.9 g/dL (3.4-5.0); ALBUMIN/GLOBULIN RATIO 1.2 (1.0-1.7); CALCIUM 8.3 mg/dL (8.5-10.1); CREATININE 1.3 mg/dL (0.7-1.3); GFR 57.1; POTASSIUM 3.8 mmol/L (3.5-5.1); TOTAL BILIRUBIN 1.2 mg/dL (0.2-1.0); TOTAL PROTEIN 5.4 g/dL (6.4-8.2)
[2016-10-23 07:00] VITALS: BP 109/65
[2016-10-23] MEDS: PANTOPRAZOLE IV PUSH 40 MG VIAL. IVP SCH (08:02)
--- NOTE | 2016-10-23 08:55 | PDOC ---
REYES ADKINS [employer]ER SOLE 10/23/16 0855: SURGICAL PROGRESS NOTE Subjective very thirsty denies nausea + flatus Vital Signs Vital Signs Date Time Temp Pulse Resp B/P (MAP) Pulse Ox O2 Delivery O2 Flow Rate FiO2 10/23/16 07:00 98.5 71 20 109/65 (80) 96 Room Air 98.5 I&O Intake and Output 10/23/16 07:00 Intake Total 881 ml Balance 881 ml Intake Oral 0 ml Other 881 ml # Voids 7 General: Alert, Oriented X3, Cooperative, No acute distress Abdomen: Soft, Other (lap sites c/d/i, no erythema ) Labs Laboratory Tests Test 10/23/16 04:05 Sodium Level 142 mmol/L (136-145) Potassium Level 3.8 mmol/L (3.5-5.1) Chloride Level 106 mmol/L (98-107) Carbon Dioxide Level 26 mmol/L (21-32) Anion Gap 10 (6-14) Blood Urea Nitrogen 15 mg/dL (8-26) Creatinine 1.3 mg/dL (0.7-1.3) Estimated GFR (Cockcroft-Gault) 57.1 BUN/Creatinine Ratio 12 (6-20) Glucose Level 61 mg/dL (70-99) Calcium Level 8.3 mg/dL (8.5-10.1) Total Bilirubin 1.2 mg/dL (0.2-1.0) Aspartate Amino Transf (AST/SGOT) 17 U/L (15-37) Alanine Aminotransferase (ALT/SGPT) 32 U/L (16-63) Alkaline Phosphatase 47 U/L (46-116) Total Protein 5.4 g/dL (6.4-8.2) Albumin 2.9 g/dL (3.4-5.0) Albumin/Globulin Ratio 1.2 (1.0-1.7) Laboratory Tests Test 10/23/16 04:05 Sodium Level 142 mmol/L (136-145) Potassium Level 3.8 mmol/L (3.5-5.1) Chloride Level 106 mmol/L (98-107) Carbon Dioxide Level 26 mmol/L (21-32) Anion Gap 10 (6-14) Blood Urea Nitrogen 15 mg/dL (8-26) Creatinine 1.3 mg/dL (0.7-1.3) Estimated GFR (Cockcroft-Gault) 57.1 BUN/Creatinine Ratio 12 (6-20) Glucose Level 61 mg/dL (70-99) Calcium Level 8.3 mg/dL (8.5-10.1) Total Bilirubin 1.2 mg/dL (0.2-1.0) Aspartate Amino Transf (AST/SGOT) 17 U/L (15-37) Alanine Aminotransferase (ALT/SGPT) 32 U/L (16-63) Alkaline Phosphatase 47 U/L (46-116) Total Protein 5.4 g/dL (6.4-8.2) Albumin 2.9 g/dL (3.4-5.0) Albumin/Globulin Ratio 1.2 (1.0-1.7) Problem List POD#3 lap repair perf ulcer clears, start oral h pylori treatment Problems: RACHAEL MARTINEZ MD 10/23/16 1209: SURGICAL PROGRESS NOTE Assessment/Plan addendum sandra clears this am. feeling much better. he is ambulating well independently in the halls afeb vss abd soft nd min tender at inc as expected a/p advance to full liquids. soft diet and home anticipated for tomorrow. h pylori tx in progress. Problems: REYES ADKINS APRN October 23, 2016 08:55 RACHAEL MARTINEZ MD October 23, 2016 12:09
[2016-10-23] MEDS: PANTOPRAZOLE 40 MG TABLET.DR. PO SCH ×2 (09:23→16:54)
[2016-10-23] MEDS: CLARITHROMYCIN 500 MG TABLET. PO SCH ×2 (09:42→21:17)
[2016-10-23] MEDS: AMOXICILLIN 250 MG CAPSULE. PO SCH ×2 (09:42→21:17)
[2016-10-23] MEDS: oxyCODONE/APAP 5/325 1 TAB TABLET PO PRN ×2 (09:42→19:16)
[2016-10-23 11:00] VITALS: BP 112/65
[2016-10-23] MEDS: EMTRICITAB PO SCH (11:18)
[2016-10-23] MEDS: TENOFOVIR PO SCH (11:18)
[2016-10-23] MEDS: EFAVIRENZ PO SCH (11:18)
[2016-10-23] MEDS: traMADol 50 MG TABLET PO PRN (11:21)
--- NOTE | 2016-10-23 12:42 | PDOC ---
Subjective: Subjective: Pain managed. Doing okay w/ clears. Passing a little gas. Objective: Vital Signs: Vital Signs Date Time Temp Pulse Resp B/P (MAP) Pulse Ox O2 Delivery O2 Flow Rate FiO2 10/23/16 11:00 98.9 77 20 112/65 (81) 95 Room Air 98.9 PE: GEN: NAD, was walking around room, sat in chair to talk to me LUNGS: CTAB HEART: RRR ABD: BS+ NEURO/PSYCH: A & O 3 A/P: Perforated prepyloric ulcer s/p lap repair -likely 2/2 NSAIDs -started on H. pylori treatment (amoxicillin, clarithromycin, pantoprazole) CRC screen, h/o colon polyps -last colonoscopy 2006 -- Improving post-op. Diet per surgery. Plan for outpt EGD (?w/ colonoscopy). MARIANA CRUZ October 23, 2016 12:42
--- NOTE | 2016-10-23 12:53 | PDOC ---
PROGRESS NOTES Chief Complaint Chief Complaint Abdominal pain History of Present Illness History of Present Illness Pt was lying in bed in NAD Reports tolerating liquid diet Reports flatulence Improved abdominal pain Vitals Vitals Vital Signs Date Time Temp Pulse Resp B/P (MAP) Pulse Ox O2 Delivery O2 Flow Rate FiO2 10/23/16 11:00 98.9 77 20 112/65 (81) 95 Room Air 98.9 Physical Exam General: Alert, Oriented X3, Cooperative, No acute distress Heart: Regular rate, Normal S1, No murmurs Lungs: Clear, Other (no wheezing) Abdomen: Soft, Other (lap sites c/d/i, no erythema ) Extremities: No clubbing, No cyanosis, No edema, Normal pulses, No tenderness/ swelling Skin: No rashes, No breakdown, No significant lesion, Other Labs LABS Laboratory Tests Test 10/23/16 04:05 Sodium Level 142 mmol/L (136-145) Potassium Level 3.8 mmol/L (3.5-5.1) Chloride Level 106 mmol/L (98-107) Carbon Dioxide Level 26 mmol/L (21-32) Anion Gap 10 (6-14) Blood Urea Nitrogen 15 mg/dL (8-26) Creatinine 1.3 mg/dL (0.7-1.3) Estimated GFR (Cockcroft-Gault) 57.1 BUN/Creatinine Ratio 12 (6-20) Glucose Level 61 mg/dL (70-99) Calcium Level 8.3 mg/dL (8.5-10.1) Total Bilirubin 1.2 mg/dL (0.2-1.0) Aspartate Amino Transf (AST/SGOT) 17 U/L (15-37) Alanine Aminotransferase (ALT/SGPT) 32 U/L (16-63) Alkaline Phosphatase 47 U/L (46-116) Total Protein 5.4 g/dL (6.4-8.2) Albumin 2.9 g/dL (3.4-5.0) Albumin/Globulin Ratio 1.2 (1.0-1.7) Review of Systems Review of Systems Denies chest pain Luigi SOA Assessment and Plan Assessmemt and Plan Assessment: 1. Perforated prepyloric ulcer, possible due to NSAIDS, POD #3 Laparoscopic repair of perforated gastric ulcer 2. Leucocytosis - resolved 3. Dehydration - resolved 4. HIV - on HAART Plan: Subspecialty input appreciated Continue H. pylori tx Await blood cultures Continue pain control Continue home meds Check labs in am PT/OT Disp: plan to d/c tomorrow am Problems: Comment Review of Relevant I have reviewed the following items adele (where applicable) has been applied. Labs Laboratory Tests Test 10/23/16 04:05 Sodium Level 142 mmol/L (136-145) Potassium Level 3.8 mmol/L (3.5-5.1) Chloride Level 106 mmol/L (98-107) Carbon Dioxide Level 26 mmol/L (21-32) Anion Gap 10 (6-14) Blood Urea Nitrogen 15 mg/dL (8-26) Creatinine 1.3 mg/dL (0.7-1.3) Estimated GFR (Cockcroft-Gault) 57.1 BUN/Creatinine Ratio 12 (6-20) Glucose Level 61 mg/dL (70-99) Calcium Level 8.3 mg/dL (8.5-10.1) Total Bilirubin 1.2 mg/dL (0.2-1.0) Aspartate Amino Transf (AST/SGOT) 17 U/L (15-37) Alanine Aminotransferase (ALT/SGPT) 32 U/L (16-63) Alkaline Phosphatase 47 U/L (46-116) Total Protein 5.4 g/dL (6.4-8.2) Albumin 2.9 g/dL (3.4-5.0) Albumin/Globulin Ratio 1.2 (1.0-1.7) Laboratory Tests Test 10/23/16 04:05 Sodium Level 142 mmol/L (136-145) Potassium Level 3.8 mmol/L (3.5-5.1) Chloride Level 106 mmol/L (98-107) Carbon Dioxide Level 26 mmol/L (21-32) Anion Gap 10 (6-14) Blood Urea Nitrogen 15 mg/dL (8-26) Creatinine 1.3 mg/dL (0.7-1.3) Estimated GFR (Cockcroft-Gault) 57.1 BUN/Creatinine Ratio 12 (6-20) Glucose Level 61 mg/dL (70-99) Calcium Level 8.3 mg/dL (8.5-10.1) Total Bilirubin 1.2 mg/dL (0.2-1.0) Aspartate Amino Transf (AST/SGOT) 17 U/L (15-37) Alanine Aminotransferase (ALT/SGPT) 32 U/L (16-63) Alkaline Phosphatase 47 U/L (46-116) Total Protein 5.4 g/dL (6.4-8.2) Albumin 2.9 g/dL (3.4-5.0) Albumin/Globulin Ratio 1.2 (1.0-1.7) Medications Current Medications Morphine Sulfate 4 mg PRN Q15MIN PRN IV/SQ PAIN GREATER THAN 3/10 Last administered on 10/21/16 05:30; Start 10/20/16 at 10:15; Stop 10/21/16 at 10:14 ; Status DC Sodium Chloride 1,000 ml @ 1,000 mls/hr Q1H IV Last administered on 10/20/16 10:27; Start 10/20/16 at 10:15; Stop 10/20/16 at 11:14; Status DC Ondansetron HCl (Zofran) 4 mg 1X ONCE IV Last administered on 10/20/16 10:27 ; Start 10/20/16 at 10:15; Stop 10/20/16 at 10:16; Status DC Hydromorphone HCl (Dilaudid) 1 mg PRN Q15MIN PRN IV/SQ PAIN GREATER THAN 3/10 Last administered on 10/21/16 09:49; Start 10/20/16 at 11:00; Stop 10/21/16 at 10:59; Status DC Iohexol (Omnipaque 300 Mg/ml) 75 ml 1X ONCE IV Last administered on 10/20/16 11:29; Start 10/20/16 at 11:30; Stop 10/20/16 at 11:31; Status DC Info (Do NOT chart on this entry -- for MONITORING) 1 each PRN DAILY PRN MC SEE COMMENTS; Start 10/20/16 at 11:30; Stop 10/22/16 at 11:29; Status DC Dexamethasone Sodium Phosphate (Decadron) 20 mg STK-MED ONCE .ROUTE ; Start at 12:24; Stop 10/20/16 at 12:25; Status DC Ondansetron HCl (Zofran) 4 mg STK-MED ONCE .ROUTE ; Start 10/20/16 at 12:24; Stop 10/20/16 at 12:25; Status DC Propofol 20 ml @ As Directed STK-MED ONCE IV ; Start 10/20/16 at 12:24; Stop at 12:25; Status DC Lidocaine HCl (Lidocaine Pf 2% Vial) 5 ml STK-MED ONCE .ROUTE ; Start 10/20/16 at 12:24; Stop 10/20/16 at 12:25; Status DC Midazolam HCl (Versed) 2 mg STK-MED ONCE .ROUTE ; Start 10/20/16 at 12:24; Stop 10/20/16 at 12:25; Status DC Rocuronium [place] (Zemuron) 50 mg STK-MED ONCE .ROUTE ; Start 10/20/16 at 12:24 ; Stop 10/20/16 at 12:25; Status DC Fentanyl Citrate (Fentanyl 2ml Vial) 100 mcg STK-MED ONCE .ROUTE ; Start at 12:24; Stop 10/20/16 at 12:25; Status DC Ondansetron HCl (Zofran) 4 mg PRN Q8HRS PRN IV NAUSEA/VOMITING; Start 10/20/16 at 12:45; Stop 10/21/16 at 12:44; Status DC Morphine Sulfate 2 mg PRN Q2HR PRN IV PAIN Last administered on 10/21/16t 08:19 ; Start 10/20/16 at 12:45; Stop 10/21/16 at 12:44; Status DC Ondansetron HCl (Zofran) 4 mg PRN Q6HRS PRN IV NAUSEA/VOMITING; Start 10/20/16 at 13:00; Stop 10/21/16 at 12:59; Status DC Fentanyl Citrate (Fentanyl 2ml Vial) 25 mcg PRN Q5MIN PRN IV MILD PAIN; Start 10/20/16 at 13:00; Stop 10/21/16 at 12:59; Status DC Fentanyl Citrate (Fentanyl 2ml Vial) 50 mcg PRN Q5MIN PRN IV MODERATE PAIN; Start 10/20/16 at 13:00; Stop 10/21/16 at 12:59; Status DC Morphine Sulfate 1 mg PRN Q10MIN PRN IV SEVERE PAIN; Start 10/20/16 at 13:00; Stop 10/21/16 at 12:59; Status DC Ringer's Solution 1,000 ml @ 30 mls/hr Q24H IV Last administered on 10/20/16 15:50; Start 10/20/16 at 12:48; Stop 10/21/16 at 00:47; Status DC Lidocaine HCl 2 ml PRN 1X PRN ID PRIOR TO IV START; Start 10/20/16 at 13:00; Stop 10/21/16 at 12:59; Status DC Hydromorphone HCl (Dilaudid) 0.5 mg PRN Q10MIN PRN IV SEV PAIN, Second choice Last administered on 10/21/16 09:20; Start 10/20/16 at 13:00; Stop 10/21/16 at 12:59; Status DC Prochlorperazine Edisylate (Compazine) 5 mg PACU PRN PRN IV NAUSEA, MRX1; Start 10/20/16 at 13:00; Stop 10/21/16 at 12:59; Status DC Bupivacaine HCl/ Epinephrine Bitart (Sensorcain-Mpf Epi 0.5%-1:[id number]) 30 ml STK -MED ONCE .ROUTE Last administered on 10/20/16 14:11; Start 10/20/16 at 12:48 ; Stop 10/20/16 at 12:49; Status DC Succinylcholine Chloride (Anectine) 200 mg STK-MED ONCE .ROUTE ; Start 10/20/16 at 13:05; Stop 10/20/16 at 13:06; Status DC Cefoxitin Sodium 100 ml @ As Directed STK-MED ONCE IV ; Start 10/20/16 at 13:33 ; Stop 10/20/16 at 13:34; Status DC Cefoxitin Sodium 2 gm/Sodium Chloride 100 ml @ 200 mls/hr 1X ONCE IV ; Start 10/20/16 at 13:45; Stop 10/20/16 at 14:14; Status UNV Cefoxitin Sodium 100 ml @ 200 mls/hr ONCE ONCE IV Last administered on 13:47; Start 10/20/16 at 14:00; Stop 10/20/16 at 14:29; Status DC Glycopyrrolate (Robinul) 1 mg STK-MED ONCE .ROUTE ; Start 10/20/16 at 14:16; Stop 10/20/16 at 14:17; Status DC Fentanyl Citrate (Fentanyl 2ml Vial) 100 mcg STK-MED ONCE .ROUTE ; Start at 14:27; Stop 10/20/16 at 14:28; Status DC Neostigmine Methylsulfate 5 mg STK-MED ONCE .ROUTE ; Start 10/20/16 at 14:50; Stop 10/20/16 at 14:51; Status DC Sevoflurane (Ultane) 60 ml STK-MED ONCE IH ; Start 10/20/16 at 15:20; Stop 10/20 at 15:21; Status DC Sodium Chloride 1,000 ml @ 50 mls/hr Q20H IV Last administered on 10/23/16 05 :07; Start 10/20/16 at 15:45 Piperacillin Sod/ Tazobactam Sod 3.375 gm/Sodium Chloride 50 ml @ 100 mls/hr Q6HRS IV Last administered on 10/23/16 05:36; Start 10/20/16 at 18:00; Stop at 09:00; Status DC Pantoprazole Sodium (Protonix Vial) 40 mg BID IVP Last administered on 22:18; Start 10/20/16 at 15:45; Stop 10/21/16 at 22:55; Status DC Hydromorphone HCl (Dilaudid) 0.4 mg PRN Q4HRS PRN IVP PAIN Last administered on 10/20/16 18:11; Start 10/20/16 at 15:45; Stop 10/22/16 at 11:47; Status DC Tramadol HCl (Ultram) 50 mg PRN Q6HRS PRN PO MILD PAIN Last administered on 11:21; Start 10/20/16 at 15:45 Oxycodone/ Acetaminophen (Percocet 5/325) 2 tab PRN Q4HRS PRN PO MODERATE - SEVERE PAIN Last administered on 10/23/16 09:42; Start 10/20/16 at 15:45 Phenylephrine HCl 1 mg STK-MED ONCE IV ; Start 10/20/16 at 15:58; Stop 10/20/16 at 15:59; Status DC Esmolol HCl (Brevibloc) 100 mg STK-MED ONCE IV ; Start 10/20/16 at 15:58; Stop 10/20/16 at 15:59; Status DC Throat Lozenges (Chloraseptic) 1 spray PRN Q2HR PRN PO SORE THROAT Last administered on 10/21/16 05:31; Start 10/20/16 at 21:45 Hydromorphone HCl (Dilaudid) 1 mg PRN Q2HR PRN IV PAIN Last administered on 03:45; Start 10/21/16 at 11:30 Enoxaparin Sodium (Lovenox 40mg Syringe) 40 mg QHS SQ Last administered on 10/22 21:29; Start 10/21/16 at 21:00 Pantoprazole Sodium (Protonix Vial) 40 mg DAILYAC IVP Last administered on 10/23 08:02; Start 10/22/16 at 07:30; Stop 10/23/16 at 09:00; Status DC Lorazepam (Ativan) 1 mg PRN Q8HRS PRN IV ANXIETY / AGITATION Last administered on 10/22/16 23:54; Start 10/22/16 at 23:15 Pantoprazole Sodium (Protonix) 40 mg BIDAC PO ; Start 10/23/16 at 09:30 Amoxicillin (Amoxil) 1,000 mg BID PO Last administered on 10/23/16 09:42; Start 10/23/16 at 09:30 Clarithromycin (Biaxin) 500 mg BID PO Last administered on 10/23/16 09:42; Start 10/23/16 at 09:30 Atorvastatin Calcium (Lipitor) 10 mg QODAY PO ; Start 10/25/16 at 09:00 Efavirenz/ Emtricitabine/ Tenofovir (Atripla) 1 tab DAILY PO Last administered on 10/23/16 11:18; Start 10/23/16 at 11:00 Active Scripts Active Reported Atripla Tablet (Efavirenz/Emtricitab/Tenofovir) 1 Each Tablet 1 Tab PO DAILY Atorvastatin Calcium 10 Mg Tablet 1 Tab PO QODAY Vitals/I & O Vital Sign - Last 24 Hours 10/22/16 10/22/16 10/22/16 10/22/16 15:00 19:00 20:00 21:33 Temp 98.5 99.2 98.5 99.2 Pulse 92 80 Resp 20 18 16 B/P (MAP) 120/74 (89) 108/63 (78) Pulse Ox 94 95 O2 Delivery Room Air Room Air Room Air Room Air 10/22/16 10/23/16 10/23/16 10/23/16 23:00 03:00 03:45 04:15 Temp 98.7 98.9 98.7 98.9 Pulse 80 72 Resp 18 18 16 16 B/P (MAP) 124/72 (89) 113/57 (75) Pulse Ox 96 95 O2 Delivery Room Air Room Air Room Air Room Air 10/23/16 10/23/16 07:00 11:00 Temp 98.5 98.9 98.5 98.9 Pulse 71 77 Resp 20 20 B/P (MAP) 109/65 (80) 112/65 (81) Pulse Ox 96 95 O2 Delivery Room Air Room Air Intake and Output 10/22/16 10/22/16 10/23/16 15:00 23:00 07:00 Intake Total 881 ml Balance 881 ml GOLDIE DC III DO October 23, 2016 12:53
[2016-10-23 15:00] VITALS: BP 120/79
[2016-10-23 19:00] VITALS: BP 103/54
[2016-10-23] MEDS: SIMETHICONE 80 MG TAB.CHEW PO PRN (19:38)
[2016-10-23] MEDS: ENOXAPARIN 40 MG/0.4 ML SYRINGE. SQ SCH (21:17)
[2016-10-23 23:00] VITALS: BP 11/77
[2016-10-24 03:00] VITALS: BP 118/78
[2016-10-24 04:49] LABS: BASO % 1 % (0-3); EOS % 5 % (0-3); HEMATOCRIT 35.8 % (39.0-53.0); HEMOGLOBIN 12.1 g/dL (13.0-17.5); LYMPH # 1.4 x10^3/uL (1.0-4.8); LYMPH % 33 % (24-48); MEAN CORPUSCULAR HEMOGLOBIN 34 pg (25-35); MEAN CORPUSCULAR HGB CONC 34 g/dL (31-37); MEAN CORPUSCULAR VOLUME 100 fL (79-100); MONO % 10 % (0-9); NEUT % 51 % (31-73); PLATELET COUNT 209 x10^3/uL (140-400); RED BLOOD COUNT 3.59 x10^6/uL (4.30-5.70); RED CELL DISTRIBUTION WIDTH 12.9 % (11.5-14.5); WHITE BLOOD COUNT 4.3 x10^3/uL (4.0-11.0)
[2016-10-24] MEDS: SIMETHICONE 80 MG TAB.CHEW PO PRN ×2 (05:05→13:18)
[2016-10-24] MEDS: traMADol 50 MG TABLET PO PRN ×2 (05:05→17:52)
[2016-10-24 05:21] LABS: CALCIUM 8.7 mg/dL (8.5-10.1); GFR 77.3; POTASSIUM 3.6 mmol/L (3.5-5.1)
[2016-10-24 07:00] VITALS: BP 118/75
[2016-10-24] MEDS: DOCUSATE SODIUM 100 MG CAPSULE. PO SCH (09:36)
[2016-10-24] MEDS: AMOXICILLIN 250 MG CAPSULE. PO SCH ×2 (09:36→21:00)
[2016-10-24] MEDS: EFAVIRENZ PO SCH (09:37)
[2016-10-24] MEDS: PANTOPRAZOLE 40 MG TABLET.DR. PO SCH ×2 (09:37→16:51)
[2016-10-24] MEDS: TENOFOVIR PO SCH (09:37)
[2016-10-24] MEDS: EMTRICITAB PO SCH (09:37)
[2016-10-24] MEDS: CLARITHROMYCIN 500 MG TABLET. PO SCH ×2 (09:37→21:00)
[2016-10-24] MEDS: HYDROmorphone 2 MG/ML VIAL IV PRN (09:39)
--- NOTE | 2016-10-24 09:52 | PDOC ---
G I PROGRESS NOTE Subjective Emesis last night per nursing notes; he can't recall. Says keeping down meds. Reports flatus; no stool yet. Physical Exam Lungs clear. RRR Abdomen soft, not distended. Incisional/RUQ tenderness. Active bowel sounds. Review of Relevant I have reviewed the following items daele (where applicable) has been applied. Labs Laboratory Tests Test 10/23/16 04:05 10/24/16 04:20 Sodium Level 142 mmol/L (136-145) 143 mmol/L (136-145) Potassium Level 3.8 mmol/L (3.5-5.1) 3.6 mmol/L (3.5-5.1) Chloride Level 106 mmol/L (98-107) 107 mmol/L (98-107) Carbon Dioxide Level 26 mmol/L (21-32) 28 mmol/L (21-32) Anion Gap 10 (6-14) 8 (6-14) Blood Urea Nitrogen 15 mg/dL (8-26) 8 mg/dL (8-26) Creatinine 1.3 mg/dL (0.7-1.3) 1.0 mg/dL (0.7-1.3) Estimated GFR (Cockcroft-Gault) 57.1 77.3 BUN/Creatinine Ratio 12 (6-20) Glucose Level 61 mg/dL (70-99) 82 mg/dL (70-99) Calcium Level 8.3 mg/dL (8.5-10.1) 8.7 mg/dL (8.5-10.1) Total Bilirubin 1.2 mg/dL (0.2-1.0) Aspartate Amino Transf (AST/SGOT) 17 U/L (15-37) Alanine Aminotransferase (ALT/SGPT) 32 U/L (16-63) Alkaline Phosphatase 47 U/L (46-116) Total Protein 5.4 g/dL (6.4-8.2) Albumin 2.9 g/dL (3.4-5.0) Albumin/Globulin Ratio 1.2 (1.0-1.7) White Blood Count 4.3 x10^3/uL (4.0-11.0) Red Blood Count 3.59 x10^6/uL (4.30-5.70) Hemoglobin 12.1 g/dL (13.0-17.5) Hematocrit 35.8 % (39.0-53.0) Mean Corpuscular Volume 100 fL (79-100) Mean Corpuscular Hemoglobin 34 pg (25-35) Mean Corpuscular Hemoglobin Concent 34 g/dL (31-37) Red Cell Distribution Width 12.9 % (11.5-14.5) Platelet Count 209 x10^3/uL (140-400) Neutrophils (%) (Auto) 51 % (31-73) Lymphocytes (%) (Auto) 33 % (24-48) Monocytes (%) (Auto) 10 % (0-9) Eosinophils (%) (Auto) 5 % (0-3) Basophils (%) (Auto) 1 % (0-3) Neutrophils # (Auto) 2.2 x10^3uL (1.8-7.7) Lymphocytes # (Auto) 1.4 x10^3/uL (1.0-4.8) Monocytes # (Auto) 0.4 x10^3/uL (0.0-1.1) Eosinophils # (Auto) 0.2 x10^3/uL (0.0-0.7) Basophils # (Auto) 0.0 x10^3/uL (0.0-0.2) Laboratory Tests Test 10/24/16 04:20 White Blood Count 4.3 x10^3/uL (4.0-11.0) Red Blood Count 3.59 x10^6/uL (4.30-5.70) Hemoglobin 12.1 g/dL (13.0-17.5) Hematocrit 35.8 % (39.0-53.0) Mean Corpuscular Volume 100 fL (79-100) Mean Corpuscular Hemoglobin 34 pg (25-35) Mean Corpuscular Hemoglobin Concent 34 g/dL (31-37) Red Cell Distribution Width 12.9 % (11.5-14.5) Platelet Count 209 x10^3/uL (140-400) Neutrophils (%) (Auto) 51 % (31-73) Lymphocytes (%) (Auto) 33 % (24-48) Monocytes (%) (Auto) 10 % (0-9) Eosinophils (%) (Auto) 5 % (0-3) Basophils (%) (Auto) 1 % (0-3) Neutrophils # (Auto) 2.2 x10^3uL (1.8-7.7) Lymphocytes # (Auto) 1.4 x10^3/uL (1.0-4.8) Monocytes # (Auto) 0.4 x10^3/uL (0.0-1.1) Eosinophils # (Auto) 0.2 x10^3/uL (0.0-0.7) Basophils # (Auto) 0.0 x10^3/uL (0.0-0.2) Sodium Level 143 mmol/L (136-145) Potassium Level 3.6 mmol/L (3.5-5.1) Chloride Level 107 mmol/L (98-107) Carbon Dioxide Level 28 mmol/L (21-32) Anion Gap 8 (6-14) Blood Urea Nitrogen 8 mg/dL (8-26) Creatinine 1.0 mg/dL (0.7-1.3) Estimated GFR (Cockcroft-Gault) 77.3 Glucose Level 82 mg/dL (70-99) Calcium Level 8.7 mg/dL (8.5-10.1) Gastrin and H.pylori pending. Medications Current Medications Morphine Sulfate 4 mg PRN Q15MIN PRN IV/SQ PAIN GREATER THAN 3/10 Last administered on 10/21/16 05:30; Start 10/20/16 at 10:15; Stop 10/21/16 at 10:14 ; Status DC Sodium Chloride 1,000 ml @ 1,000 mls/hr Q1H IV Last administered on 10/20/16 10:27; Start 10/20/16 at 10:15; Stop 10/20/16 at 11:14; Status DC Ondansetron HCl (Zofran) 4 mg 1X ONCE IV Last administered on 10/20/16 10:27 ; Start 10/20/16 at 10:15; Stop 10/20/16 at 10:16; Status DC Hydromorphone HCl (Dilaudid) 1 mg PRN Q15MIN PRN IV/SQ PAIN GREATER THAN 3/10 Last administered on 10/21/16 09:49; Start 10/20/16 at 11:00; Stop 10/21/16 at 10:59; Status DC Iohexol (Omnipaque 300 Mg/ml) 75 ml 1X ONCE IV Last administered on 10/20/16t 11:29; Start 10/20/16 at 11:30; Stop 10/20/16 at 11:31; Status DC Info (Do NOT chart on this entry -- for MONITORING) 1 each PRN DAILY PRN MC SEE COMMENTS; Start 10/20/16 at 11:30; Stop 10/22/16 at 11:29; Status DC Dexamethasone Sodium Phosphate (Decadron) 20 mg STK-MED ONCE .ROUTE ; Start at 12:24; Stop 10/20/16 at 12:25; Status DC Ondansetron HCl (Zofran) 4 mg STK-MED ONCE .ROUTE ; Start 10/20/16 at 12:24; Stop 10/20/16 at 12:25; Status DC Propofol 20 ml @ As Directed STK-MED ONCE IV ; Start 10/20/16 at 12:24; Stop at 12:25; Status DC Lidocaine HCl (Lidocaine Pf 2% Vial) 5 ml STK-MED ONCE .ROUTE ; Start 10/20/16 at 12:24; Stop 10/20/16 at 12:25; Status DC Midazolam HCl (Versed) 2 mg STK-MED ONCE .ROUTE ; Start 10/20/16 at 12:24; Stop 10/20/16 at 12:25; Status DC Rocuronium [place] (Zemuron) 50 mg STK-MED ONCE .ROUTE ; Start 10/20/16 at 12:24 ; Stop 10/20/16 at 12:25; Status DC Fentanyl Citrate (Fentanyl 2ml Vial) 100 mcg STK-MED ONCE .ROUTE ; Start at 12:24; Stop 10/20/16 at 12:25; Status DC Ondansetron HCl (Zofran) 4 mg PRN Q8HRS PRN IV NAUSEA/VOMITING; Start 10/20/16 at 12:45; Stop 10/21/16 at 12:44; Status DC Morphine Sulfate 2 mg PRN Q2HR PRN IV PAIN Last administered on 10/21/16t 08:19 ; Start 10/20/16 at 12:45; Stop 10/21/16 at 12:44; Status DC Ondansetron HCl (Zofran) 4 mg PRN Q6HRS PRN IV NAUSEA/VOMITING; Start 10/20/16 at 13:00; Stop 10/21/16 at 12:59; Status DC Fentanyl Citrate (Fentanyl 2ml Vial) 25 mcg PRN Q5MIN PRN IV MILD PAIN; Start 10/20/16 at 13:00; Stop 10/21/16 at 12:59; Status DC Fentanyl Citrate (Fentanyl 2ml Vial) 50 mcg PRN Q5MIN PRN IV MODERATE PAIN; Start 10/20/16 at 13:00; Stop 10/21/16 at 12:59; Status DC Morphine Sulfate 1 mg PRN Q10MIN PRN IV SEVERE PAIN; Start 10/20/16 at 13:00; Stop 10/21/16 at 12:59; Status DC Ringer's Solution 1,000 ml @ 30 mls/hr Q24H IV Last administered on 10/20/16 15:50; Start 10/20/16 at 12:48; Stop 10/21/16 at 00:47; Status DC Lidocaine HCl 2 ml PRN 1X PRN ID PRIOR TO IV START; Start 10/20/16 at 13:00; Stop 10/21/16 at 12:59; Status DC Hydromorphone HCl (Dilaudid) 0.5 mg PRN Q10MIN PRN IV SEV PAIN, Second choice Last administered on 10/21/16 09:20; Start 10/20/16 at 13:00; Stop 10/21/16 at 12:59; Status DC Prochlorperazine Edisylate (Compazine) 5 mg PACU PRN PRN IV NAUSEA, MRX1; Start 10/20/16 at 13:00; Stop 10/21/16 at 12:59; Status DC Bupivacaine HCl/ Epinephrine Bitart (Sensorcain-Mpf Epi 0.5%-1:[id number]) 30 ml STK -MED ONCE .ROUTE Last administered on 10/20/16 14:11; Start 10/20/16 at 12:48 ; Stop 10/20/16 at 12:49; Status DC Succinylcholine Chloride (Anectine) 200 mg STK-MED ONCE .ROUTE ; Start 10/20/16 at 13:05; Stop 10/20/16 at 13:06; Status DC Cefoxitin Sodium 100 ml @ As Directed STK-MED ONCE IV ; Start 10/20/16 at 13:33 ; Stop 10/20/16 at 13:34; Status DC Cefoxitin Sodium 2 gm/Sodium Chloride 100 ml @ 200 mls/hr 1X ONCE IV ; Start 10/20/16 at 13:45; Stop 10/20/16 at 14:14; Status UNV Cefoxitin Sodium 100 ml @ 200 mls/hr ONCE ONCE IV Last administered on 13:47; Start 10/20/16 at 14:00; Stop 10/20/16 at 14:29; Status DC Glycopyrrolate (Robinul) 1 mg STK-MED ONCE .ROUTE ; Start 10/20/16 at 14:16; Stop 10/20/16 at 14:17; Status DC Fentanyl Citrate (Fentanyl 2ml Vial) 100 mcg STK-MED ONCE .ROUTE ; Start at 14:27; Stop 10/20/16 at 14:28; Status DC Neostigmine Methylsulfate 5 mg STK-MED ONCE .ROUTE ; Start 10/20/16 at 14:50; Stop 10/20/16 at 14:51; Status DC Sevoflurane (Ultane) 60 ml STK-MED ONCE IH ; Start 10/20/16 at 15:20; Stop 10/20 at 15:21; Status DC Sodium Chloride 1,000 ml @ 50 mls/hr Q20H IV Last administered on 10/23/16 05 :07; Start 10/20/16 at 15:45; Stop 10/23/16 at 18:10; Status DC Piperacillin Sod/ Tazobactam Sod 3.375 gm/Sodium Chloride 50 ml @ 100 mls/hr Q6HRS IV Last administered on 10/23/16 05:36; Start 10/20/16 at 18:00; Stop at 09:00; Status DC Pantoprazole Sodium (Protonix Vial) 40 mg BID IVP Last administered on 22:18; Start 10/20/16 at 15:45; Stop 10/21/16 at 22:55; Status DC Hydromorphone HCl (Dilaudid) 0.4 mg PRN Q4HRS PRN IVP PAIN Last administered on 10/20/16 18:11; Start 10/20/16 at 15:45; Stop 10/22/16 at 11:47; Status DC Tramadol HCl (Ultram) 50 mg PRN Q6HRS PRN PO MILD PAIN Last administered on 05:05; Start 10/20/16 at 15:45 Oxycodone/ Acetaminophen (Percocet 5/325) 2 tab PRN Q4HRS PRN PO MODERATE - SEVERE PAIN Last administered on 10/23/16 19:16; Start 10/20/16 at 15:45 Phenylephrine HCl 1 mg STK-MED ONCE IV ; Start 10/20/16 at 15:58; Stop 10/20/16 at 15:59; Status DC Esmolol HCl (Brevibloc) 100 mg STK-MED ONCE IV ; Start 10/20/16 at 15:58; Stop 10/20/16 at 15:59; Status DC Throat Lozenges (Chloraseptic) 1 spray PRN Q2HR PRN PO SORE THROAT Last administered on 10/21/16 05:31; Start 10/20/16 at 21:45 Hydromorphone HCl (Dilaudid) 1 mg PRN Q2HR PRN IV PAIN Last administered on 09:39; Start 10/21/16 at 11:30 Enoxaparin Sodium (Lovenox 40mg Syringe) 40 mg QHS SQ Last administered on 10/23 21:17; Start 10/21/16 at 21:00 Pantoprazole Sodium (Protonix Vial) 40 mg DAILYAC IVP Last administered on 10/23 08:02; Start 10/22/16 at 07:30; Stop 10/23/16 at 09:00; Status DC Lorazepam (Ativan) 1 mg PRN Q8HRS PRN IV ANXIETY / AGITATION Last administered on 10/23/16 19:44; Start 10/22/16 at 23:15 Pantoprazole Sodium (Protonix) 40 mg BIDAC PO Last administered on 10/24/16 09 :37; Start 10/23/16 at 09:30 Amoxicillin (Amoxil) 1,000 mg BID PO Last administered on 10/24/16 09:36; Start 10/23/16 at 09:30 Clarithromycin (Biaxin) 500 mg BID PO Last administered on 10/24/16 09:37; Start 10/23/16 at 09:30 Atorvastatin Calcium (Lipitor) 10 mg QODAY PO ; Start 10/25/16 at 09:00 Efavirenz/ Emtricitabine/ Tenofovir (Atripla) 1 tab DAILY PO Last administered on 10/24/16 09:37; Start 10/23/16 at 11:00 Simethicone (Gas-X) 80 mg PRN Q8HRS PRN PO GAS / BLOATING Last administered on 10/24/16 05:05; Start 10/23/16 at 19:30 Docusate Sodium (Colace) 100 mg DAILY PO Last administered on 10/24/16 09:36; Start 10/24/16 at 10:00 Active Scripts Active Reported Atripla Tablet (Efavirenz/Emtricitab/Tenofovir) 1 Each Tablet 1 Tab PO DAILY Atorvastatin Calcium 10 Mg Tablet 1 Tab PO QODAY Vitals/I & O Vital Sign - Last 24 Hours 10/23/16 10/23/16 10/23/16 10/23/16 11:00 15:00 19:00 19:16 Temp 98.9 97.5 98.6 98.9 97.5 98.6 Pulse 77 58 77 Resp 20 20 18 16 B/P (MAP) 112/65 (81) 120/79 (93) 103/54 (70) Pulse Ox 95 99 95 O2 Delivery Room Air Room Air Room Air Room Air 10/23/16 10/23/16 10/23/16 10/24/16 20:00 20:16 23:00 03:00 Temp 98.2 98.1 98.2 98.1 Pulse 94 70 Resp 16 18 18 B/P (MAP) 11/77 (55) 118/78 (91) Pulse Ox 93 95 O2 Delivery Room Air Room Air Room Air Room Air 10/24/16 10/24/16 10/24/16 05:05 06:05 07:00 Temp 98.2 98.2 Pulse 68 Resp 16 16 18 B/P (MAP) 118/75 (89) Pulse Ox 95 O2 Delivery Room Air Room Air Room Air Intake and Output 10/23/16 10/23/16 10/24/16 15:00 23:00 07:00 Intake Total 850 ml Output Total 550 ml Balance 300 ml Assessment Perforated ulcer, s/p oversew. On empiric Rx for H.pylori. Save emesis last night, doing OK. Plan of Care: Continue current Tx, Mgmt Plan of Care Note Await pending data. Diet, etc. per Surgery. NATASHA BROWN MD October 24, 2016 09:52
--- NOTE | 2016-10-24 10:04 | PDOC ---
PROGRESS NOTES Chief Complaint Chief Complaint cc: Abdominal pain a/p Perforated prepyloric ulcer, possible due to NSAIDS, S/P Laparoscopic repair of perforated gastric ulcer Leucocytosis : resolved, HIV on HAART Dehydration resolved. Plan Advance diet per surgery on empiric H pylori treatment labs reviewed. pain control with IV Dilaudid ? emesis today, History of Present Illness History of Present Illness no emesis eating ok flatus + no BM yet Vitals Vitals Vital Signs Date Time Temp Pulse Resp B/P (MAP) Pulse Ox O2 Delivery O2 Flow Rate FiO2 10/24/16 07:00 98.2 68 18 118/75 (89) 95 Room Air 98.2 Physical Exam General: Alert, Oriented X3, Cooperative, No acute distress Heart: Regular rate, Normal S1, No murmurs Lungs: Clear, Other (no wheezing) Abdomen: Soft, Other (lap sites c/d/i, no erythema ) Extremities: No clubbing, No cyanosis, No edema, Normal pulses, No tenderness/ swelling Skin: No rashes, No breakdown, No significant lesion, Other Labs LABS Laboratory Tests Test 10/24/16 04:20 White Blood Count 4.3 x10^3/uL (4.0-11.0) Red Blood Count 3.59 x10^6/uL (4.30-5.70) Hemoglobin 12.1 g/dL (13.0-17.5) Hematocrit 35.8 % (39.0-53.0) Mean Corpuscular Volume 100 fL (79-100) Mean Corpuscular Hemoglobin 34 pg (25-35) Mean Corpuscular Hemoglobin Concent 34 g/dL (31-37) Red Cell Distribution Width 12.9 % (11.5-14.5) Platelet Count 209 x10^3/uL (140-400) Neutrophils (%) (Auto) 51 % (31-73) Lymphocytes (%) (Auto) 33 % (24-48) Monocytes (%) (Auto) 10 % (0-9) Eosinophils (%) (Auto) 5 % (0-3) Basophils (%) (Auto) 1 % (0-3) Neutrophils # (Auto) 2.2 x10^3uL (1.8-7.7) Lymphocytes # (Auto) 1.4 x10^3/uL (1.0-4.8) Monocytes # (Auto) 0.4 x10^3/uL (0.0-1.1) Eosinophils # (Auto) 0.2 x10^3/uL (0.0-0.7) Basophils # (Auto) 0.0 x10^3/uL (0.0-0.2) Sodium Level 143 mmol/L (136-145) Potassium Level 3.6 mmol/L (3.5-5.1) Chloride Level 107 mmol/L (98-107) Carbon Dioxide Level 28 mmol/L (21-32) Anion Gap 8 (6-14) Blood Urea Nitrogen 8 mg/dL (8-26) Creatinine 1.0 mg/dL (0.7-1.3) Estimated GFR (Cockcroft-Gault) 77.3 Glucose Level 82 mg/dL (70-99) Calcium Level 8.7 mg/dL (8.5-10.1) Comment Review of Relevant I have reviewed the following items [place] (where applicable) has been applied. Labs Laboratory Tests Test 10/23/16 04:05 10/24/16 04:20 Sodium Level 142 mmol/L (136-145) 143 mmol/L (136-145) Potassium Level 3.8 mmol/L (3.5-5.1) 3.6 mmol/L (3.5-5.1) Chloride Level 106 mmol/L (98-107) 107 mmol/L (98-107) Carbon Dioxide Level 26 mmol/L (21-32) 28 mmol/L (21-32) Anion Gap 10 (6-14) 8 (6-14) Blood Urea Nitrogen 15 mg/dL (8-26) 8 mg/dL (8-26) Creatinine 1.3 mg/dL (0.7-1.3) 1.0 mg/dL (0.7-1.3) Estimated GFR (Cockcroft-Gault) 57.1 77.3 BUN/Creatinine Ratio 12 (6-20) Glucose Level 61 mg/dL (70-99) 82 mg/dL (70-99) Calcium Level 8.3 mg/dL (8.5-10.1) 8.7 mg/dL (8.5-10.1) Total Bilirubin 1.2 mg/dL (0.2-1.0) Aspartate Amino Transf (AST/SGOT) 17 U/L (15-37) Alanine Aminotransferase (ALT/SGPT) 32 U/L (16-63) Alkaline Phosphatase 47 U/L (46-116) Total Protein 5.4 g/dL (6.4-8.2) Albumin 2.9 g/dL (3.4-5.0) Albumin/Globulin Ratio 1.2 (1.0-1.7) White Blood Count 4.3 x10^3/uL (4.0-11.0) Red Blood Count 3.59 x10^6/uL (4.30-5.70) Hemoglobin 12.1 g/dL (13.0-17.5) Hematocrit 35.8 % (39.0-53.0) Mean Corpuscular Volume 100 fL (79-100) Mean Corpuscular Hemoglobin 34 pg (25-35) Mean Corpuscular Hemoglobin Concent 34 g/dL (31-37) Red Cell Distribution Width 12.9 % (11.5-14.5) Platelet Count 209 x10^3/uL (140-400) Neutrophils (%) (Auto) 51 % (31-73) Lymphocytes (%) (Auto) 33 % (24-48) Monocytes (%) (Auto) 10 % (0-9) Eosinophils (%) (Auto) 5 % (0-3) Basophils (%) (Auto) 1 % (0-3) Neutrophils # (Auto) 2.2 x10^3uL (1.8-7.7) Lymphocytes # (Auto) 1.4 x10^3/uL (1.0-4.8) Monocytes # (Auto) 0.4 x10^3/uL (0.0-1.1) Eosinophils # (Auto) 0.2 x10^3/uL (0.0-0.7) Basophils # (Auto) 0.0 x10^3/uL (0.0-0.2) Laboratory Tests Test 10/24/16 04:20 White Blood Count 4.3 x10^3/uL (4.0-11.0) Red Blood Count 3.59 x10^6/uL (4.30-5.70) Hemoglobin 12.1 g/dL (13.0-17.5) Hematocrit 35.8 % (39.0-53.0) Mean Corpuscular Volume 100 fL (79-100) Mean Corpuscular Hemoglobin 34 pg (25-35) Mean Corpuscular Hemoglobin Concent 34 g/dL (31-37) Red Cell Distribution Width 12.9 % (11.5-14.5) Platelet Count 209 x10^3/uL (140-400) Neutrophils (%) (Auto) 51 % (31-73) Lymphocytes (%) (Auto) 33 % (24-48) Monocytes (%) (Auto) 10 % (0-9) Eosinophils (%) (Auto) 5 % (0-3) Basophils (%) (Auto) 1 % (0-3) Neutrophils # (Auto) 2.2 x10^3uL (1.8-7.7) Lymphocytes # (Auto) 1.4 x10^3/uL (1.0-4.8) Monocytes # (Auto) 0.4 x10^3/uL (0.0-1.1) Eosinophils # (Auto) 0.2 x10^3/uL (0.0-0.7) Basophils # (Auto) 0.0 x10^3/uL (0.0-0.2) Sodium Level 143 mmol/L (136-145) Potassium Level 3.6 mmol/L (3.5-5.1) Chloride Level 107 mmol/L (98-107) Carbon Dioxide Level 28 mmol/L (21-32) Anion Gap 8 (6-14) Blood Urea Nitrogen 8 mg/dL (8-26) Creatinine 1.0 mg/dL (0.7-1.3) Estimated GFR (Cockcroft-Gault) 77.3 Glucose Level 82 mg/dL (70-99) Calcium Level 8.7 mg/dL (8.5-10.1) Medications Current Medications Morphine Sulfate 4 mg PRN Q15MIN PRN IV/SQ PAIN GREATER THAN 3/10 Last administered on 10/21/16 05:30; Start 10/20/16 at 10:15; Stop 10/21/16 at 10:14 ; Status DC Sodium Chloride 1,000 ml @ 1,000 mls/hr Q1H IV Last administered on 10/20/16 10:27; Start 10/20/16 at 10:15; Stop 10/20/16 at 11:14; Status DC Ondansetron HCl (Zofran) 4 mg 1X ONCE IV Last administered on 10/20/16t 10:27 ; Start 10/20/16 at 10:15; Stop 10/20/16 at 10:16; Status DC Hydromorphone HCl (Dilaudid) 1 mg PRN Q15MIN PRN IV/SQ PAIN GREATER THAN 3/10 Last administered on 10/21/16 09:49; Start 10/20/16 at 11:00; Stop 10/21/16 at 10:59; Status DC Iohexol (Omnipaque 300 Mg/ml) 75 ml 1X ONCE IV Last administered on 10/20/16t 11:29; Start 10/20/16 at 11:30; Stop 10/20/16 at 11:31; Status DC Info (Do NOT chart on this entry -- for MONITORING) 1 each PRN DAILY PRN MC SEE COMMENTS; Start 10/20/16 at 11:30; Stop 10/22/16 at 11:29; Status DC Dexamethasone Sodium Phosphate (Decadron) 20 mg STK-MED ONCE .ROUTE ; Start at 12:24; Stop 10/20/16 at 12:25; Status DC Ondansetron HCl (Zofran) 4 mg STK-MED ONCE .ROUTE ; Start 10/20/16 at 12:24; Stop 10/20/16 at 12:25; Status DC Propofol 20 ml @ As Directed STK-MED ONCE IV ; Start 10/20/16 at 12:24; Stop at 12:25; Status DC Lidocaine HCl (Lidocaine Pf 2% Vial) 5 ml STK-MED ONCE .ROUTE ; Start 10/20/16 at 12:24; Stop 10/20/16 at 12:25; Status DC Midazolam HCl (Versed) 2 mg STK-MED ONCE .ROUTE ; Start 10/20/16 at 12:24; Stop 10/20/16 at 12:25; Status DC Rocuronium [place] (Zemuron) 50 mg STK-MED ONCE .ROUTE ; Start 10/20/16 at 12:24 ; Stop 10/20/16 at 12:25; Status DC Fentanyl Citrate (Fentanyl 2ml Vial) 100 mcg STK-MED ONCE .ROUTE ; Start at 12:24; Stop 10/20/16 at 12:25; Status DC Ondansetron HCl (Zofran) 4 mg PRN Q8HRS PRN IV NAUSEA/VOMITING; Start 10/20/16 at 12:45; Stop 10/21/16 at 12:44; Status DC Morphine Sulfate 2 mg PRN Q2HR PRN IV PAIN Last administered on 10/21/16 08:19 ; Start 10/20/16 at 12:45; Stop 10/21/16 at 12:44; Status DC Ondansetron HCl (Zofran) 4 mg PRN Q6HRS PRN IV NAUSEA/VOMITING; Start 10/20/16 at 13:00; Stop 10/21/16 at 12:59; Status DC Fentanyl Citrate (Fentanyl 2ml Vial) 25 mcg PRN Q5MIN PRN IV MILD PAIN; Start 10/20/16 at 13:00; Stop 10/21/16 at 12:59; Status DC Fentanyl Citrate (Fentanyl 2ml Vial) 50 mcg PRN Q5MIN PRN IV MODERATE PAIN; Start 10/20/16 at 13:00; Stop 10/21/16 at 12:59; Status DC Morphine Sulfate 1 mg PRN Q10MIN PRN IV SEVERE PAIN; Start 10/20/16 at 13:00; Stop 10/21/16 at 12:59; Status DC Ringer's Solution 1,000 ml @ 30 mls/hr Q24H IV Last administered on 10/20/16 15:50; Start 10/20/16 at 12:48; Stop 10/21/16 at 00:47; Status DC Lidocaine HCl 2 ml PRN 1X PRN ID PRIOR TO IV START; Start 10/20/16 at 13:00; Stop 10/21/16 at 12:59; Status DC Hydromorphone HCl (Dilaudid) 0.5 mg PRN Q10MIN PRN IV SEV PAIN, Second choice Last administered on 10/21/16 09:20; Start 10/20/16 at 13:00; Stop 10/21/16 at 12:59; Status DC Prochlorperazine Edisylate (Compazine) 5 mg PACU PRN PRN IV NAUSEA, MRX1; Start 10/20/16 at 13:00; Stop 10/21/16 at 12:59; Status DC Bupivacaine HCl/ Epinephrine Bitart (Sensorcain-Mpf Epi 0.5%-1:[id number]) 30 ml STK -MED ONCE .ROUTE Last administered on 10/20/16 14:11; Start 10/20/16 at 12:48 ; Stop 10/20/16 at 12:49; Status DC Succinylcholine Chloride (Anectine) 200 mg STK-MED ONCE .ROUTE ; Start 10/20/16 at 13:05; Stop 10/20/16 at 13:06; Status DC Cefoxitin Sodium 100 ml @ As Directed STK-MED ONCE IV ; Start 10/20/16 at 13:33 ; Stop 10/20/16 at 13:34; Status DC Cefoxitin Sodium 2 gm/Sodium Chloride 100 ml @ 200 mls/hr 1X ONCE IV ; Start 10/20/16 at 13:45; Stop 10/20/16 at 14:14; Status UNV Cefoxitin Sodium 100 ml @ 200 mls/hr ONCE ONCE IV Last administered on 13:47; Start 10/20/16 at 14:00; Stop 10/20/16 at 14:29; Status DC Glycopyrrolate (Robinul) 1 mg STK-MED ONCE .ROUTE ; Start 10/20/16 at 14:16; Stop 10/20/16 at 14:17; Status DC Fentanyl Citrate (Fentanyl 2ml Vial) 100 mcg STK-MED ONCE .ROUTE ; Start at 14:27; Stop 10/20/16 at 14:28; Status DC Neostigmine Methylsulfate 5 mg STK-MED ONCE .ROUTE ; Start 10/20/16 at 14:50; Stop 10/20/16 at 14:51; Status DC Sevoflurane (Ultane) 60 ml STK-MED ONCE IH ; Start 10/20/16 at 15:20; Stop 10/20 at 15:21; Status DC Sodium Chloride 1,000 ml @ 50 mls/hr Q20H IV Last administered on 10/23/16 05 :07; Start 10/20/16 at 15:45; Stop 10/23/16 at 18:10; Status DC Piperacillin Sod/ Tazobactam Sod 3.375 gm/Sodium Chloride 50 ml @ 100 mls/hr Q6HRS IV Last administered on 10/23/16 05:36; Start 10/20/16 at 18:00; Stop at 09:00; Status DC Pantoprazole Sodium (Protonix Vial) 40 mg BID IVP Last administered on 22:18; Start 10/20/16 at 15:45; Stop 10/21/16 at 22:55; Status DC Hydromorphone HCl (Dilaudid) 0.4 mg PRN Q4HRS PRN IVP PAIN Last administered on 10/20/16 18:11; Start 10/20/16 at 15:45; Stop 10/22/16 at 11:47; Status DC Tramadol HCl (Ultram) 50 mg PRN Q6HRS PRN PO MILD PAIN Last administered on 05:05; Start 10/20/16 at 15:45 Oxycodone/ Acetaminophen (Percocet 5/325) 2 tab PRN Q4HRS PRN PO MODERATE - SEVERE PAIN Last administered on 10/23/16 19:16; Start 10/20/16 at 15:45 Phenylephrine HCl 1 mg STK-MED ONCE IV ; Start 10/20/16 at 15:58; Stop 10/20/16 at 15:59; Status DC Esmolol HCl (Brevibloc) 100 mg STK-MED ONCE IV ; Start 10/20/16 at 15:58; Stop 10/20/16 at 15:59; Status DC Throat Lozenges (Chloraseptic) 1 spray PRN Q2HR PRN PO SORE THROAT Last administered on 10/21/16 05:31; Start 10/20/16 at 21:45 Hydromorphone HCl (Dilaudid) 1 mg PRN Q2HR PRN IV PAIN Last administered on 09:39; Start 10/21/16 at 11:30 Enoxaparin Sodium (Lovenox 40mg Syringe) 40 mg QHS SQ Last administered on 10/23 21:17; Start 10/21/16 at 21:00 Pantoprazole Sodium (Protonix Vial) 40 mg DAILYAC IVP Last administered on 10/23 08:02; Start 10/22/16 at 07:30; Stop 10/23/16 at 09:00; Status DC Lorazepam (Ativan) 1 mg PRN Q8HRS PRN IV ANXIETY / AGITATION Last administered on 10/23/16 19:44; Start 10/22/16 at 23:15 Pantoprazole Sodium (Protonix) 40 mg BIDAC PO Last administered on 10/24/16 09 :37; Start 10/23/16 at 09:30 Amoxicillin (Amoxil) 1,000 mg BID PO Last administered on 10/24/16 09:36; Start 10/23/16 at 09:30 Clarithromycin (Biaxin) 500 mg BID PO Last administered on 10/24/16 09:37; Start 10/23/16 at 09:30 Atorvastatin Calcium (Lipitor) 10 mg QODAY PO ; Start 10/25/16 at 09:00 Efavirenz/ Emtricitabine/ Tenofovir (Atripla) 1 tab DAILY PO Last administered on 10/24/16 09:37; Start 10/23/16 at 11:00 Simethicone (Gas-X) 80 mg PRN Q8HRS PRN PO GAS / BLOATING Last administered on 10/24/16 05:05; Start 10/23/16 at 19:30 Docusate Sodium (Colace) 100 mg DAILY PO Last administered on 10/24/16 09:36; Start 10/24/16 at 10:00 Active Scripts Active Reported Atripla Tablet (Efavirenz/Emtricitab/Tenofovir) 1 Each Tablet 1 Tab PO DAILY Atorvastatin Calcium 10 Mg Tablet 1 Tab PO QODAY Vitals/I & O Vital Sign - Last 24 Hours 10/23/16 10/23/16 10/23/16 10/23/16 11:00 15:00 19:00 19:16 Temp 98.9 97.5 98.6 98.9 97.5 98.6 Pulse 77 58 77 Resp 20 20 18 16 B/P (MAP) 112/65 (81) 120/79 (93) 103/54 (70) Pulse Ox 95 99 95 O2 Delivery Room Air Room Air Room Air Room Air 10/23/16 10/23/16 10/23/16 10/24/16 20:00 20:16 23:00 03:00 Temp 98.2 98.1 98.2 98.1 Pulse 94 70 Resp 16 18 18 B/P (MAP) 11/77 (55) 118/78 (91) Pulse Ox 93 95 O2 Delivery Room Air Room Air Room Air Room Air 10/24/16 10/24/16 10/24/16 05:05 06:05 07:00 Temp 98.2 98.2 Pulse 68 Resp 16 16 18 B/P (MAP) 118/75 (89) Pulse Ox 95 O2 Delivery Room Air Room Air Room Air Intake and Output 10/23/16 10/23/16 10/24/16 15:00 23:00 07:00 Intake Total 850 ml Output Total 550 ml Balance 300 ml TORO LEE MD October 24, 2016 10:04
[2016-10-24 11:00] VITALS: BP 119/77
--- NOTE | 2016-10-24 11:27 | PDOC ---
SURGICAL PROGRESS NOTE Subjective pain last night, nurse notes report emesis--pt does not remember if he did ambulating in halls, pain to upper abdomen, incision sites, has been taking IV meds still tolerating full liquids today, no n/v + flatus, no stool yet Vital Signs Vital Signs Date Time Temp Pulse Resp B/P (MAP) Pulse Ox O2 Delivery O2 Flow Rate FiO2 10/24/16 07:00 98.2 68 18 118/75 (89) 95 Room Air 98.2 I&O Intake and Output 10/24/16 07:00 Intake Total 850 ml Output Total 550 ml Balance 300 ml Intake Oral 850 ml Output Urine Total 550 ml # Voids 6 General: Alert, Oriented X3, Cooperative, No acute distress Abdomen: Soft, Other (ND, lap sites c/d/i, no erythema, expected incisional pain ) Labs Laboratory Tests Test 10/23/16 04:05 10/24/16 04:20 Sodium Level 142 mmol/L (136-145) 143 mmol/L (136-145) Potassium Level 3.8 mmol/L (3.5-5.1) 3.6 mmol/L (3.5-5.1) Chloride Level 106 mmol/L (98-107) 107 mmol/L (98-107) Carbon Dioxide Level 26 mmol/L (21-32) 28 mmol/L (21-32) Anion Gap 10 (6-14) 8 (6-14) Blood Urea Nitrogen 15 mg/dL (8-26) 8 mg/dL (8-26) Creatinine 1.3 mg/dL (0.7-1.3) 1.0 mg/dL (0.7-1.3) Estimated GFR (Cockcroft-Gault) 57.1 77.3 BUN/Creatinine Ratio 12 (6-20) Glucose Level 61 mg/dL (70-99) 82 mg/dL (70-99) Calcium Level 8.3 mg/dL (8.5-10.1) 8.7 mg/dL (8.5-10.1) Total Bilirubin 1.2 mg/dL (0.2-1.0) Aspartate Amino Transf (AST/SGOT) 17 U/L (15-37) Alanine Aminotransferase (ALT/SGPT) 32 U/L (16-63) Alkaline Phosphatase 47 U/L (46-116) Total Protein 5.4 g/dL (6.4-8.2) Albumin 2.9 g/dL (3.4-5.0) Albumin/Globulin Ratio 1.2 (1.0-1.7) White Blood Count 4.3 x10^3/uL (4.0-11.0) Red Blood Count 3.59 x10^6/uL (4.30-5.70) Hemoglobin 12.1 g/dL (13.0-17.5) Hematocrit 35.8 % (39.0-53.0) Mean Corpuscular Volume 100 fL (79-100) Mean Corpuscular Hemoglobin 34 pg (25-35) Mean Corpuscular Hemoglobin Concent 34 g/dL (31-37) Red Cell Distribution Width 12.9 % (11.5-14.5) Platelet Count 209 x10^3/uL (140-400) Neutrophils (%) (Auto) 51 % (31-73) Lymphocytes (%) (Auto) 33 % (24-48) Monocytes (%) (Auto) 10 % (0-9) Eosinophils (%) (Auto) 5 % (0-3) Basophils (%) (Auto) 1 % (0-3) Neutrophils # (Auto) 2.2 x10^3uL (1.8-7.7) Lymphocytes # (Auto) 1.4 x10^3/uL (1.0-4.8) Monocytes # (Auto) 0.4 x10^3/uL (0.0-1.1) Eosinophils # (Auto) 0.2 x10^3/uL (0.0-0.7) Basophils # (Auto) 0.0 x10^3/uL (0.0-0.2) Laboratory Tests Test 10/24/16 04:20 White Blood Count 4.3 x10^3/uL (4.0-11.0) Red Blood Count 3.59 x10^6/uL (4.30-5.70) Hemoglobin 12.1 g/dL (13.0-17.5) Hematocrit 35.8 % (39.0-53.0) Mean Corpuscular Volume 100 fL (79-100) Mean Corpuscular Hemoglobin 34 pg (25-35) Mean Corpuscular Hemoglobin Concent 34 g/dL (31-37) Red Cell Distribution Width 12.9 % (11.5-14.5) Platelet Count 209 x10^3/uL (140-400) Neutrophils (%) (Auto) 51 % (31-73) Lymphocytes (%) (Auto) 33 % (24-48) Monocytes (%) (Auto) 10 % (0-9) Eosinophils (%) (Auto) 5 % (0-3) Basophils (%) (Auto) 1 % (0-3) Neutrophils # (Auto) 2.2 x10^3uL (1.8-7.7) Lymphocytes # (Auto) 1.4 x10^3/uL (1.0-4.8) Monocytes # (Auto) 0.4 x10^3/uL (0.0-1.1) Eosinophils # (Auto) 0.2 x10^3/uL (0.0-0.7) Basophils # (Auto) 0.0 x10^3/uL (0.0-0.2) Sodium Level 143 mmol/L (136-145) Potassium Level 3.6 mmol/L (3.5-5.1) Chloride Level 107 mmol/L (98-107) Carbon Dioxide Level 28 mmol/L (21-32) Anion Gap 8 (6-14) Blood Urea Nitrogen 8 mg/dL (8-26) Creatinine 1.0 mg/dL (0.7-1.3) Estimated GFR (Cockcroft-Gault) 77.3 Glucose Level 82 mg/dL (70-99) Calcium Level 8.7 mg/dL (8.5-10.1) Assessment/Plan s/p perf ulcer repair advance to soft diet, dc IV pain meds continue empiric h pylori treatment if tolerating diet and pain managed on oral meds, plan dc in AM Problems: REYES ADKINS APRN October 24, 2016 11:27
[2016-10-24] MEDS: oxyCODONE/APAP 5/325 1 TAB TABLET PO PRN ×2 (13:19→19:55)
[2016-10-24 15:00] VITALS: BP 121/77
[2016-10-24] MEDS ORDERED: MAGNESIUM HYDROXIDE 2,400 MG/30 ML ORAL.SUSP. PO PRN (16:00)
[2016-10-24] MEDS ORDERED: ONDANSETRON ODT 4 MG TAB.RAPDIS. PO PRN (17:00)
[2016-10-24 19:00] VITALS: BP 108/60
[2016-10-24] MEDS: ENOXAPARIN 40 MG/0.4 ML SYRINGE. SQ SCH (21:00)
[2016-10-24 23:00] VITALS: BP 122/82
[2016-10-25] MEDS: oxyCODONE/APAP 5/325 1 TAB TABLET PO PRN ×2 (00:10→09:02)
[2016-10-25 03:00] VITALS: BP 119/75
[2016-10-25 06:10] LABS: BASO % 1 % (0-3); EOS % 7 % (0-3); HEMATOCRIT 36.6 % (39.0-53.0); HEMOGLOBIN 12.3 g/dL (13.0-17.5); LYMPH # 1.6 x10^3/uL (1.0-4.8); LYMPH % 38 % (24-48); MEAN CORPUSCULAR HEMOGLOBIN 34 pg (25-35); MEAN CORPUSCULAR HGB CONC 34 g/dL (31-37); MEAN CORPUSCULAR VOLUME 100 fL (79-100); MONO % 13 % (0-9); NEUT % 41 % (31-73); PLATELET COUNT 222 x10^3/uL (140-400); RED BLOOD COUNT 3.65 x10^6/uL (4.30-5.70); RED CELL DISTRIBUTION WIDTH 12.9 % (11.5-14.5); WHITE BLOOD COUNT 4.3 x10^3/uL (4.0-11.0)
[2016-10-25 06:24] LABS: CALCIUM 8.8 mg/dL (8.5-10.1); CREATININE 1.1 mg/dL (0.7-1.3); GFR 69.2; POTASSIUM 4.1 mmol/L (3.5-5.1)
[2016-10-25 07:00] VITALS: BP 106/68
[2016-10-25] MEDS ORDERED: ATORVASTATIN CALCIUM 10 MG TABLET. PO SCH (09:00)
[2016-10-25] MEDS: CLARITHROMYCIN 500 MG TABLET. PO SCH (09:01)
[2016-10-25] MEDS: AMOXICILLIN 250 MG CAPSULE. PO SCH (09:01)
[2016-10-25] MEDS: TENOFOVIR PO SCH (09:02)
[2016-10-25] MEDS: DOCUSATE SODIUM 100 MG CAPSULE. PO SCH (09:02)
[2016-10-25] MEDS: EMTRICITAB PO SCH (09:02)
[2016-10-25] MEDS: PANTOPRAZOLE 40 MG TABLET.DR. PO SCH (09:02)
[2016-10-25] MEDS: EFAVIRENZ PO SCH (09:02)
--- NOTE | 2016-10-25 10:40 | PDOC ---
Subjective: Subjective: Pain managed w/ oral meds. Had two stools yesterday. Tolerating diet w/o n/v. Would like to go home. Objective: Vital Signs: Vital Signs Date Time Temp Pulse Resp B/P (MAP) Pulse Ox O2 Delivery O2 Flow Rate FiO2 10/25/16 07:00 98.2 71 20 106/68 (81) 94 Room Air 98.2 Labs: Laboratory Tests Test 10/25/16 05:14 White Blood Count 4.3 x10^3/uL Red Blood Count 3.65 x10^6/uL Hemoglobin 12.3 g/dL Hematocrit 36.6 % Mean Corpuscular Volume 100 fL Mean Corpuscular Hemoglobin 34 pg Mean Corpuscular Hemoglobin Concent 34 g/dL Red Cell Distribution Width 12.9 % Platelet Count 222 x10^3/uL Neutrophils (%) (Auto) 41 % Lymphocytes (%) (Auto) 38 % Monocytes (%) (Auto) 13 % Eosinophils (%) (Auto) 7 % Basophils (%) (Auto) 1 % Neutrophils # (Auto) 1.8 x10^3uL Lymphocytes # (Auto) 1.6 x10^3/uL Monocytes # (Auto) 0.6 x10^3/uL Eosinophils # (Auto) 0.3 x10^3/uL Basophils # (Auto) 0.0 x10^3/uL Sodium Level 142 mmol/L Potassium Level 4.1 mmol/L Chloride Level 104 mmol/L Carbon Dioxide Level 31 mmol/L Anion Gap 7 Blood Urea Nitrogen 7 mg/dL Creatinine 1.1 mg/dL Estimated GFR (Cockcroft-Gault) 69.2 Glucose Level 87 mg/dL Calcium Level 8.8 mg/dL PE: GEN: NAD, was walking halls LUNGS: CTAB HEART: RRR ABD: some tenderness, incisional NEURO/PSYCH: A & O 3 A/P: Perforated prepyloric ulcer s/p lap repair -likely 2/2 NSAIDs -started on empiric H. pylori treatment ---> serology ordered and cancelled -- ?DC today - per primary/surg. Follow-up re: gastrin level, EGD, colonoscopy. MARIANA CRUZ October 25, 2016 10:40
[2016-10-25 11:00] VITALS: BP 115/81
[2016-10-25] MEDS ORDERED: OXYC1TAB7 PO (11:38)
[2016-10-25] MEDS ORDERED: CLAR500T3 PO (11:38)
[2016-10-25] MEDS ORDERED: AMOX250C PO (11:38)
[2016-10-25] MEDS ORDERED: PANT40TA5 PO (11:38)
--- NOTE | 2016-10-27 21:53 | DS ---
DATE OF DISCHARGE: 10/25/2016 DISCHARGE DIAGNOSES: 1. Perforated prepyloric ulcer, possibly due NSAID status post laparoscopic repair of the perforated gastric ulcer by Dr. Lee. 2. Leukocytosis, likely reactive. 3. Human immunodeficiency virus, on HAART therapy. 4. Dehydration, resolved. BRIEF HOSPITAL COURSE: A 56-year-old male patient admitted to the hospital on 10/20/2016 for abdominal pain. He was diagnosed with perforated ulcer and he had a laparoscopic repair of the perforated gastric ulcer by Dr. Lee. Post-surgery, patient slowly improved and at the time of discharge he did have bowel movement, able to pass flatus, able to tolerate diet very well. He is hemodynamically stable, no fevers. The patient wanted to go home. After consultation with General Surgery and Gastroenterology the patient deemed stable enough to go home and follow up with Dr. Lee in 2 weeks. He has been provided enough pain medications and followup appointments. DISCHARGE EXAMINATION: GENERAL: Alert, oriented x 3. HEART: S1, S2 present. CHEST: Anterior chest clear. ABDOMEN: Soft, nontender, bowel sounds present. EXTREMITIES: No edema. DISCHARGE DISPOSITION: Home. DISCHARGE CONDITION: Stable. DISCHARGE FOLLOWUP: With Dr. Lee. DISCHARGE MEDICATIONS: Reviewed and reconciled. Please see MRAD. DIET: Regular diet. Total time spent for discharge is 35 minutes for patient education, counseling, and coordination of care. TORO LEE MD DR: SKYLAR/iván JOB#: [id number] / [id number] SOLO
== END 2016-10-25 13:55 | disposition home or self-care (01) | DRG 326 ==
LOC: EDBD 09:58 → ER 10:48 → 4 NORTH 12:20
PROVIDERS: ADMIT Internal Medicine; ATTEND Internal Medicine
PROC: 0DQ64ZZ Repair Stomach, Percutaneous Endoscopic Approach (ICD-10-PCS; principal; 2016-10-20 13:00)
DX: K25.5 Chronic or unspecified gastric ulcer with perforation (principal); K65.9 Peritonitis, unspecified; E86.0 Dehydration; L98.499 Non-pressure chronic ulcer of skin of other sites with unspecified severity; Z21 Asymptomatic human immunodeficiency virus [HIV] infection status; E78.00 Pure hypercholesterolemia, unspecified; E78.5 Hyperlipidemia, unspecified; Z79.899 Other long term (current) drug therapy; Z86.010 Personal history of colon polyps; F17.210 Nicotine dependence, cigarettes, uncomplicated
CPT/HCPCS: 36415; 71010; 74000; 74177; 80048; 80053; 80076; 81001; 82553; 82941; 83690; 84484; 85007; 85027; 85610; 85730; 86360; 86850; 86900; 86901; 93005; 96361; 96374; C9113; G0481; J0330; J0694; J1100; J1170; J1650; J2060; J2250; J2270; J2370; J2405; J2543; J2704; J2710; J3010; J3490; J7030; J7120; Q0162; Q9967; 99285-25

== ENCOUNTER 2016-10-26 04:47 | Emergency (ER) | payer OTHER ==
[~2016-10-26] VITALS: Ht 177.8 cm; Wt 74.8 kg
[~2016-10-26 04:47] MED LIST: AMOX250C PO; ATOR10TA60 PO; CLAR500T3 PO; EFAV1TAB PO; OXYC1TAB7 PO; PANT40TA5 PO
[2016-10-26] MEDS ORDERED: HYDROmorphone 2 MG/ML VIAL ONE (05:09)
--- NOTE | 2016-10-26 05:09 | PHYS DOC ---
Past Medical History Past Medical History: HIV, Other Additional Past Medical Histor: HYPERLIPIDEMIA Past Surgical History: Other Additional Past Surgical Histo: STOMACH SX FOR VARICOSE VEINS,R ELBOW SURGERY Past Surgical History Laparoscopic repair of perforated ulcer on 10/20/[address]. Alcohol Use: Rarely Drug Use: None Adult General Chief Complaint Chief Complaint: ABDOMINAL PAIN HPI HPI Patient is a 56 year old male who presents with abdominal pain. Was just discharged 10/25/16. He states he went home and he ate a corn dog. At 1730 p.m. he had a small hard stool. [place] very nauseated then took his first dose of pain medicine since he's been home which is tramadol and his antibiotics. By 2200 p.m. he had intense abdominal pain. He felt very bloated no vomiting but nausea. No fever. he did call his surgeon who requested that he come in to be evaluated. Review of Systems Review of Systems Constitutional: Denies fever or chills Eyes: Denies change in visual acuity, redness, or eye pain HENT: Denies nasal congestion or sore throat Respiratory: Denies cough or shortness of breath Cardiovascular: No chest pain. GI:see HPI. No blood in stool. : Denies dysuria or hematuria Musculoskeletal: Denies back pain or joint pain Integument: Denies rash or skin lesions Neurologic: Denies headache, focal weakness or sensory changes Current Medications Current Medications Current Medications Medications (Trade) Dose Ordered Sig/Viet Start Time Stop Time Status Last Admin Dose Admin Dicyclomine HCl (Bentyl) 10 mg 1X ONCE 10/26/16 09:15 10/26/16 09:16 DC Hydromorphone HCl (Dilaudid) 2 mg STK-MED ONCE 10/26/16 05:09 10/26/16 05:10 DC Info (Do NOT chart on this entry -- for MONITORING) 1 each PRN DAILY PRN 10/26/16 08:15 10/26/16 09:51 DC Iohexol (Omnipaque 240 Mg/ml) 30 ml 1X ONCE 10/26/16 07:00 10/26/16 07:01 DC 10/26/16 08:02 30 ML Iohexol (Omnipaque 300 Mg/ml) 75 ml 1X ONCE 10/26/16 08:00 10/26/16 08:01 DC Lorazepam (Ativan) 1 mg PRN Q4HRS PRN 10/26/16 06:30 10/26/16 09:51 DC 10/26/16 06:38 1 MG Ondansetron HCl (Zofran) 4 mg 1X ONCE 10/26/16 05:30 10/26/16 05:31 DC 10/26/16 05:17 4 MG Simethicone (Gas-X) 160 mg PRN AFTMEALHC PRN 10/26/16 06:00 10/26/16 09:51 DC Sodium Chloride 1,000 ml @ 1,000 mls/hr Q1H 10/26/16 05:30 10/26/16 06:29 DC 10/26/16 05:17 1,000 MLS/HR Allergies Allergies Allergies Coded Allergies Type Severity Reaction Last Updated Verified No Known Drug Allergies 11/05/15 No Physical Exam Physical Exam Constitutional: Well developed, well nourished, no acute distress, non-toxic appearance. HENT: Normocephalic, atraumatic, bilateral external ears normal, oropharynx moist, no oral exudates, nose normal. Eyes: PERRLA, EOMI, conjunctiva normal, no discharge. Neck: Normal range of motion, no tenderness, supple, no stridor. Cardiovascular:Heart rate regular rhythm, no murmur Lungs & Thorax: Bilateral breath sounds clear to auscultation Abdomen: Bowel sounds normal, soft, diffuse tenderness, no masses, no pulsatile masses. surgical incisions healing well; no drainage. Skin: Warm, dry, no erythema, no rash. Back: No tenderness, no CVA tenderness. Extremities: No tenderness, no cyanosis, no clubbing, ROM intact, no edema. Neurologic: Alert and oriented X 3, normal motor function, normal sensory function, no focal deficits noted. Psychologic: Affect normal, judgement normal, mood normal. Current Patient Data Vital Signs Vital Signs Date Time Temp Pulse Resp B/P (MAP) Pulse Ox O2 Delivery O2 Flow Rate FiO2 10/26/16 08:17 14 96 Room Air 10/26/16 08:15 77 111/56 (74) 10/26/16 05:04 98.0 98.0 P 105; BP 121/75 Lab Values Laboratory Tests Test 10/26/16 05:00 White Blood Count 6.3 x10^3/uL (4.0-11.0) Red Blood Count 4.33 x10^6/uL (4.30-5.70) Hemoglobin 14.9 g/dL (13.0-17.5) Hematocrit 42.0 % (39.0-53.0) Mean Corpuscular Volume 97 fL (79-100) Mean Corpuscular Hemoglobin 35 pg (25-35) Mean Corpuscular Hemoglobin Concent 36 g/dL (31-37) Red Cell Distribution Width 12.9 % (11.5-14.5) Platelet Count 334 x10^3/uL (140-400) Neutrophils (%) (Auto) 54 % (31-73) Lymphocytes (%) (Auto) 34 % (24-48) Monocytes (%) (Auto) 10 % (0-9) H Eosinophils (%) (Auto) 2 % (0-3) Basophils (%) (Auto) 1 % (0-3) Neutrophils # (Auto) 3.4 x10^3uL (1.8-7.7) Lymphocytes # (Auto) 2.1 x10^3/uL (1.0-4.8) Monocytes # (Auto) 0.6 x10^3/uL (0.0-1.1) Eosinophils # (Auto) 0.1 x10^3/uL (0.0-0.7) Basophils # (Auto) 0.0 x10^3/uL (0.0-0.2) Sodium Level 142 mmol/L (136-145) Potassium Level 4.1 mmol/L (3.5-5.1) Chloride Level 103 mmol/L (98-107) Carbon Dioxide Level 29 mmol/L (21-32) Anion Gap 10 (6-14) Blood Urea Nitrogen 7 mg/dL (8-26) L Creatinine 1.2 mg/dL (0.7-1.3) Estimated GFR (Cockcroft-Gault) 62.6 BUN/Creatinine Ratio 6 (6-20) Glucose Level 120 mg/dL (70-99) H Calcium Level 9.8 mg/dL (8.5-10.1) # Total Bilirubin 0.5 mg/dL (0.2-1.0) Direct Bilirubin 0.2 mg/dL (0.0-0.2) Aspartate Amino Transferase (AST) 21 U/L (15-37) Alanine Aminotransferase (ALT) 32 U/L (16-63) Alkaline Phosphatase 87 U/L (46-116) Total Protein 7.7 g/dL (6.4-8.2) Albumin 3.9 g/dL (3.4-5.0) Albumin/Globulin Ratio 1.0 (1.0-1.7) Laboratory Tests 10/26/16 05:00 Laboratory Tests 10/26/16 05:00 Radiology/Procedures Radiology/Procedures Two-view abdominal films no free air no air-fluid levels. Nonspecific bowel gas noted. Impressions: [facility] [id number] [place], [place] [id number] IMAGING REPORT Signed PATIENT: COREY ELLIOTT ACCOUNT: [id number] : 1960 LOCATION: ER AGE: 56 SEX: M EXAM STATUS: REG ER ORD. PHYSICIAN: CHRYSTAL VUONG MD REASON: recent perf ulcer PROCEDURE: CT ABD PELV W/ORAL&IV CONTRAST CT of the abdomen and pelvis with contrast, 10/26/2016: History: Abdominal pain, recent perforated ulcer Multidetector CT imaging was performed following oral and IV administration of contrast. Comparison is made to a study from 10/20/2016. There is mild bibasilar linear atelectasis. The liver is unremarkable. No gallbladder abnormality is seen. No pancreatic abnormality is detected. The spleen is of normal size. No renal abnormality is detected. There is mild aortoiliac calcific plaquing. No abdominal or pelvic adenopathy is seen. The bowel loops are not dilated. The cecum is low-lying in the anterior aspect of the lower pelvis adjacent to the urinary bladder. The appendix is not visualized. Free air seen in the abdomen on the previous study has resolved. Reportedly there has been an interval gastric ulcer repair. The stomach is collapsed and not well delineated. No significant free fluid is evident in the abdomen or pelvis. IMPRESSION: No acute abdominal or pelvic abnormality is detected. PQRS Compliance Statement: One or more of the following individualized dose reduction techniques were utilized for this examination: 1. Automated exposure control 2. Adjustment of the mA and/or kV according to patient size 3. Use of iterative reconstruction technique DICTATED and SIGNED BY: TERE ZUNIGA MD DATE: 10/26/1631 CC: CHRYSTAL VUONG MD; [facility]; MALINA DO DO ~ Course & Med Decision Making Course & Med Decision Making Pertinent Labs and Imaging studies reviewed. (See chart for details) Evaluated patient upon arrival. He appears to have gaseous distension. Lab and xrays ordered 0545 AM: Xrays with no evidence of bowel obstruction. His laboratory data is unremarkable as well. Continue with pain management does with the simethicone po. 0630 AM: Patient with no relief. He states his pain is "10 out of 10". He is very anxious. Dosed with Ativan IV here. Contacted his surgeon, DR Lee. 0730 am: patient awaiting CT scan. Care of patient turned over at shift change. Signout received from Dr. Vuong, with findings as above. CT obtained with oral and IV contrast, did not reveal any evidence of acute normalities, free air which is previously present after surgery is now resolved, no other concerning findings identified. I did discuss this with patient, he is now resting more comfortably in the emergency department receiving medications. I spoke with Dr. Lee, patient's surgeon, and related these findings and patient's clinical condition. She recommends plan for the patient to follow-up with her in the office as scheduled, to continue medications at home, and also dietary precautions. I did address dietary instructions with patient regarding a bland diet, and also uses of medications as prescribed by his surgeon. We also discussed concerning symptoms that prompt return to the emergency department. Patient voiced understanding and agreement plan as stated, states he is ready to be discharged home at this time. Patient discharged home in stable condition with instructions, precautions and plan as stated above. Dragon Disclaimer Dragon Disclaimer This electronic medical record was generated, in whole or in part, using a voice recognition dictation system. Departure Impression: Primary Impression: Abdominal pain Additional Impressions: Nausea S/P laparoscopic procedure Disposition: HOME, SELF-CARE Condition: IMPROVED Referrals: [facility] (PCP) Departure Departure Impression: Primary Impression: Abdominal pain Additional Impressions: Nausea S/P laparoscopic procedure Disposition: HOME, SELF-CARE Condition: IMPROVED Referrals: [facility] (PCP) Problem Qualifiers CHRYSTAL VUONG MD October 26, 2016 05:08 MALINA DO DO October 26, 2016 10:18
[2016-10-26 05:15] LABS: BASO % 1 % (0-3); EOS % 2 % (0-3); HEMOGLOBIN 14.9 g/dL (13.0-17.5); LYMPH # 2.1 x10^3/uL (1.0-4.8); LYMPH % 34 % (24-48); MEAN CORPUSCULAR HEMOGLOBIN 35 pg (25-35); MEAN CORPUSCULAR HGB CONC 36 g/dL (31-37); MEAN CORPUSCULAR VOLUME 97 fL (79-100); MONO % 10 % (0-9); NEUT % 54 % (31-73); PLATELET COUNT 334 x10^3/uL (140-400); RED BLOOD COUNT 4.33 x10^6/uL (4.30-5.70); RED CELL DISTRIBUTION WIDTH 12.9 % (11.5-14.5); WHITE BLOOD COUNT 6.3 x10^3/uL (4.0-11.0)
[2016-10-26] MEDS: HYDROmorphone 2 MG/ML VIAL IV/SQ PRN ×4 (05:18→08:17)
[2016-10-26 05:28] LABS: CALCIUM 9.8 mg/dL (8.5-10.1); CREATININE 1.2 mg/dL (0.7-1.3); GFR 62.6; POTASSIUM 4.1 mmol/L (3.5-5.1)
[2016-10-26] MEDS ORDERED: ONDANSETRON PF 4 MG/2 ML VIAL. IV ONE (05:30)
[2016-10-26] MEDS ORDERED: IV NORMAL SALINE 1000ML BAG 1,000 ML IV SCH (05:30)
[2016-10-26 05:33] LABS: ALBUMIN 3.9 g/dL (3.4-5.0); DIRECT BILIRUBIN 0.2 mg/dL (0.0-0.2); TOTAL BILIRUBIN 0.5 mg/dL (0.2-1.0); TOTAL PROTEIN 7.7 g/dL (6.4-8.2)
[2016-10-26] MEDS ORDERED: SIMETHICONE 80 MG TAB.CHEW PO PRN (06:00)
[2016-10-26] MEDS ORDERED: CONTRAST GIVEN MC PRN ×2 (07:00→08:15)
[2016-10-26] MEDS ORDERED: IOHEXOL 300 MG/ML 75 ML VIAL IV ONE ×2 (07:00→08:00)
[2016-10-26] MEDS ORDERED: IOHEXOL 240 MG/ML 50ML VIAL. PO ONE (07:00)
--- NOTE | 2016-10-26 07:41 | RAD ---
Indication abdominal pain. Supine and upright films of the abdomen were obtained. Note is made of a previous examination 6 days earlier. Note is made of the CT examination performed 10/20/2016 The lung bases are clear. No gross free air is identified. The abdominal gas pattern is normal. No organomegaly or abnormal calculi are seen. Surgical clips are noted in the left abdomen. IMPRESSION: No acute finding seen in the abdomen on plain film
[2016-10-26 08:15] VITALS: BP 111/56
--- NOTE | 2016-10-26 08:16 | ACF ---
Admission Forms Criteria ABDOMINAL PAIN Clinical Indications for Admission to Inpatient Care (Place 'X' for any and all applicable criteria): Admission is indicated for ANY ONE of the following(1)(2)(3)(4)(5): [ ]I. Inpatient admission required rather than observation care (Also use Abdominal Pain: Observation Care, as appropriate) because of ANY ONE of the following: [ ]a) Severe pain requiring acute inpatient management [ ]b) Identification of etiology/finding that requires inpatient care (eg, aortic dissection, free air) [ ]c) Absent bowel sounds with complete ileus(6) [ ]d) Suspected toxic megacolon [ ]e) Severe electrolyte abnormalities requiring inpatient care [ ]f) High fever or infection requiring inpatient admission as indicated by ANY ONE of following(7)(8): [ ] i) Appropriate outpatient or observational care antimicrobial treatment unavailable, not effective, or not feasible [ ] ii) Documented bacteremia [ ] iii) Temperature > 104.9 degrees F (oral) [ ] iv) T >103.1 F (oral) or < 96.8 F(rectal) that does not respond to all emergency treatment measures [ ]g) Signs of intestinal obstruction [B] [ ]h) Hemodynamic instability [ ]i) IV fluid to replace significant ongoing losses (greater than 3 L/m2 per day) (12)(13) [ ]j) Percutaneous or open drainage (eg, abscess, biliary tract ) procedures [ ]k) Parenteral nutrition regimen that must be implemented on inpatient basis [ ]l) Other condition,treatment or monitoring requiring inpatient admission. [ ]II. Peritoneal signs present [ ]III. Surgery needed that cannot be performed on an ambulatory basis. [ ]IV. Evaluation requires patient to not eat or drink for extended period ( eg, more than 24 hours). [ ]V. Contraindications and/or Inappropriate clinical situations for Observational Care in patients with abdominal pain, when ANY ONE of the following is required: [ ]a) Thorough evaluation is required to prevent catastrophic events due to delays in diagnosing (e.g.Mesenteric ischemia) 1,3 [ ]b) Patient with severe pathology or with chronic symptoms unlikely to improve in the ED stay (3) [ ]. General contraindications and/or Inappropriate clinical situations for Observational Care in patients with abdominal pain, when ANY ONE of the following is required: [ ]a) Prediction of prolongation of LOS based on ANY ONE of the following may be considered as a contraindication for observational care 2, 3, 4, 5, 6, 7, 8, 9, 10, 11 [ ]i) Age > 65 yrs. [ ]ii) Patient arriving by ambulance [ ]iii) Patient with high acuity [ ]iv) Patient requiring vital sign monitoring [ ]v) Patient on IV medication [ ]b) Systolic blood pressures 180mmHg 3,12 [ ]c) Patient with altered mental status including delirium and other alteration of consciousness, (3) [ ]d) Patient whose discharge disposition will be to a longterm home or rehabilitation home should not be managed in Emergency Department Observation Unit. CMS rule requires 3 days hospital stay before such placement.3,13 [ ]e) Patient with failure to thrive due to broad array of etiologies 3,16,17 [ ]f) Inability to ambulate 3,14 Extended stay beyond goal length of stay may be needed for(2)(3): [ ]a) Persistent abdominal pain with suspected intra-abdominal process [ ]b) Diagnosed condition requiring continued stay (e.g., pancreatitis, complicated diverticulitis) [ ]c) Surgery (e.g., colectomy) The original [facility] [employer] content created by [employer] has been revised. The portions of the content which have been revised are identified through the use of italic text or in bold, and [facility] has neither reviewed nor approved the modified material.All other unmodified content is copyright [employer] Please see references footnoted in the original [facility] [employer] edition 2016 ANA GARCIA October 26, 2016 08:15
--- NOTE | 2016-10-26 08:42 | RAD ---
CT of the abdomen and pelvis with contrast, 10/26/2016: History: Abdominal pain, recent perforated ulcer Multidetector CT imaging was performed following oral and IV administration of contrast. Comparison is made to a study from 10/20/2016. There is mild bibasilar linear atelectasis. The liver is unremarkable. No gallbladder abnormality is seen. No pancreatic abnormality is detected. The spleen is of normal size. No renal abnormality is detected. There is mild aortoiliac calcific plaquing. No abdominal or pelvic adenopathy is seen. The bowel loops are not dilated. The cecum is low-lying in the anterior aspect of the lower pelvis adjacent to the urinary bladder. The appendix is not visualized. Free air seen in the abdomen on the previous study has resolved. Reportedly there has been an interval gastric ulcer repair. The stomach is collapsed and not well delineated. No significant free fluid is evident in the abdomen or pelvis. IMPRESSION: No acute abdominal or pelvic abnormality is detected. PQRS Compliance Statement: One or more of the following individualized dose reduction techniques were utilized for this examination: 1. Automated exposure control 2. Adjustment of the mA and/or kV according to patient size 3. Use of iterative reconstruction technique
[2016-10-26] MEDS ORDERED: DICYCLOMINE HCL 10 MG CAPSULE PO ONE (09:15)
== END 2016-10-26 09:35 | disposition home or self-care (01) ==
LOC: ER 04:47
DX: G89.18 Other acute postprocedural pain (principal); R10.9 Unspecified abdominal pain; R11.0 Nausea; E78.5 Hyperlipidemia, unspecified
CPT/HCPCS: 36415; 74020; 74177; 80053; 82248; 85027; 96361; 96374; 96375; 96376; 99285; J1170; J2060; J2405; J7030; Q9966; Q9967

== ENCOUNTER → 2016-11-21 | Day surgery (SDC) | payer OTHER ==
[~2016-11-21] MED LIST changes: +IV RINGERS,LACTATED 1000ML 1,000 ML IV SCH; +LIDOCAINE 2% PF Vial for OR 5 ML VIAL. ONE; +PROPOFOL 20 ML IV ONE; +[UNRECOGNIZED DRUG - OTHER]
--- NOTE | 2016-11-21 12:06 | PDOC1 ---
History and Physical Date of Admission Date of Admission DATE: 11/21/16 TIME: 11:58 Source Source: Chart review, Patient History of Present Illness History of Present Illness 56 y/o male who underwent laparoscopic oversew of perforated prepyloric ulcer in September. This was associated with NSAID use. He received empiric treatment for H.pylori, though no determination done (Biaxin/Amoxicillin/PPI). Currently off meds and no complaints. EGD recommended and presents for same. No GB, liver or pancreatic history. No D, C, N, V. KK Prior colonoscopy in [place] ~2009 with polyps. Past Medical History Cardiovascular: Hyperlipidemia Infectious disease: Other (HIV positive) Past Surgical History Past Surgical History: Appendectomy, Other (oversew ulcer, varicocele) Family History Family History Negative for GI issues. Social History Smoke: 1 pack per day ALCOHOL: none Drugs: None Current Medications Current Medications Current Medications Ringer's Solution 1,000 ml @ 50 mls/hr Q20H IV ; Start 11/21/16 at 06:00; Stop 11/22/16 at 05:59 Active Scripts Active Reported [[place]] Atorvastatin Calcium 10 Mg Tablet 1 Tab PO QODAY Allergies Allergies: Coded Allergies: No Known Drug Allergies (Unverified , 11/21/16) ROS Review of System 10-point review otherwise negative. Physical Exam General: Alert, Oriented X3, Cooperative, No acute distress Lungs: Clear to auscultation Heart: S1S2, RRR, no gallops, no murmurs Abdomen: Normal bowel sounds, Soft, No tenderness, No hepatosplenomegaly, No masses Rectal Exam: not examined Extremities: No cyanosis, No edema Skin: No significant lesion Neuro: Normal speech, Strength at 5/5 X4 ext, Normal tone, Sensation intact, Cranial nerves 3-12 NL, Reflexes 2+ Psych/Mental Status: Mental status NL, Mood NL Vitals Vitals Vital Signs Date Time Temp Pulse Resp B/P (MAP) Pulse Ox O2 Delivery O2 Flow Rate FiO2 11/21/16 11:52 97.4 82 18 95 97.4 VTE Prophylaxis Ordered VTE Prophylaxis Devices: No VTE Pharmacological Prophylaxi: No Assessment/Plan Assessment/Plan IMP: h/o complicated ulcer; H.pylori? Persistent? REC: EGD with biopsies. NATASHA BROWN MD Nov 21, 2016 12:06
--- NOTE | 2016-11-21 13:01 | PDOC4 ---
PROCEDURE Procedure EGD'biopsies Indication: prior perforated ulcer. H.pylori? Meds: per anesthesia. Findings: E--Irregular Z-line at 40cm c/w some degree of reflux. G--prepyloric deformity post ulcer oversew. Biopsies from antrum. D--normal to second portion. Sim. well. IMP: Reflux esophagitis, minimally symptomatic. Post-surgical prepyloric deformity. REC: Await biopsies. f/u in office in 2 weeks. Resume home meds, diet. NATASHA BROWN MD Nov 21, 2016 13:01
[2016-11-21 13:24] VITALS: BP 106/67
--- NOTE | 2016-11-22 12:19 | PATHOLOGY ---
PATHOLOGY REPORT * * * * * * * * FINAL DIAGNOSIS: Gastric biopsy, antrum: - Mild chronic gastritis arising in the background of chronic reactive gastropathy with focal intestinal metaplasia. - There is no evidence of atypia, acute ulcer or malignancy. - The immunoperoxidase stain for Helicobacter pylori is negative. ([facility]:jessica; d/t: 11/22/2016) REPORT ELECTRONICALLY SIGNED BY: Naeem Davis M.D. DATE/TIME: 11/22/2016 12:18 * * * * * * * * GROSS PATHOLOGY: Received in formalin labeled "Kaveh Euceda, antrum biopsy," are 3 segments of nguyen soft tissue measuring from 0.3 up to 0.5 cm in maximum dimension. The specimen is submitted entirely in cassette A1. ([facility]; 11/21/16) INITIAL CPT CODE(S): A; 15937, 36362 Professional services performed by [facility] [address] Technical services performed by [facility] at [address] [place] [address], [facility] [address] [address]. SPECIMEN(S) RECEIVED: A.Antrum biopsy CLINICAL HISTORY: Perforated ulcer follow up PATIENT: KAVEH EUCEDA V /AGE: 4 1960 (Age: 56) PATIENT #: [id number] ALT CASE #: SPECIMEN COLLECTION DATE: 11/21/2016 SPECIMEN RECEIVED DATE: 11/21/2016 [facility] - [address] [place] [address] - PHONE: [phone] * * * END OF REPORT * * *
== END | disposition home or self-care (01) ==
LOC: ENDOS 11:31
PROVIDERS: ATTEND Internal Medicine Gastroenterology
DX: K27.9 Peptic ulcer, site unspecified, unspecified as acute or chronic, without hemorrhage or perforation (principal); K22.8 Other specified diseases of esophagus; K91.89 Other postprocedural complications and disorders of digestive system; E78.00 Pure hypercholesterolemia, unspecified; Z72.89 Other problems related to lifestyle; Z72.0 Tobacco use
CPT/HCPCS: 43239; 88305; 88342; J2704

== ENCOUNTER → 2017-07-13 | Outpatient (CLI) | payer OTHER | END | disposition home or self-care (01) | LOC: RAD 09:07 | DX: M79.642 Pain in left hand (principal) | CPT/HCPCS: 73120 ==